=== PATIENT | female | born 1955 | race Caucasian/White ===

== ENCOUNTER 2019-12-08 11:05 | Outpatient (REF) | payer OTHER, SELFPAY ==
[2019-12-09 13:21] LABS: Lyme Abs Screen <0.90 index
[2019-12-12 12:46] LABS: EBV DNA PCR Not Detected (Not Detected); EBV Source Whole Blood
== END 2019-12-08 11:06 | disposition home or self-care (01) ==
LOC: HO.HMGCLDS 11:05
PROVIDERS: PCP Internal Medicine; Visit Provider Nurse Practitioner Family
DX: G51.0 Bell's palsy (principal)
CPT/HCPCS: 86618; 87798

== ENCOUNTER 2019-12-22 10:54 | Outpatient (REF) | payer OTHER, SELFPAY ==
[2019-12-22 14:06] LABS: MANUAL DIFF FLAG NO
[2019-12-22 14:12] LABS: Basophils Absolute Auto 0.1 X10*3/uL (0.0-0.2); Basophils Percent Auto 0.4 % (0-2); Eosinophils Absolute Auto 0.1 X10*3/uL (0.0-0.4); Eosinophils Percent Auto 1.1 % (0-4); Hematocrit 41.5 % (37-47); Hemoglobin 13.9 g/dl (12.0-16.0); Imm Gran Abs Auto 0.04 X10*3/uL (0.00-0.03); Imm Gran Pct Auto 0.3 % (0.0-0.4); Lymphocytes Absolute Auto 3.7 X10*3/uL (1.2-4.9); Mean Corpuscular HGB Conc 33.5 g/dl (31.0-35.0); Mean Corpuscular Volume 98.6 fL (80-98); Mean Platelet Volume 10.2 fL (9.4-12.3); Monocytes Absolute Auto 0.9 X10*3/uL (0.1-1.2); Monocytes Percent Auto 6.9 % (2-11); Neutrophils Percent Auto 62.3 % (45-73); Platelet Count 217 X10*3/uL (160-400); Red Blood Count 4.21 X10*6/uL (4.20-5.50); Red Cell Distribution Width 12.7 % (11.0-16.0); White Blood Count 12.8 X10*3/uL (4.8-10.8)
[2019-12-22 14:45] LABS: Anion Gap 15 (12-20); Blood Urea Nitrogen 11 mg/dL (9-16); Calcium 8.9 mg/dL (8.4-10.2); Carbon Dioxide 26 mmol/L (22-29); Chloride 102 mmol/L (96-108); Estimated Glomerular Filt Rate > 60; Glucose Random 129 mg/dL (60-115); Potassium 3.7 mmol/l (3.3-5.1); Sodium 139 mmol/L (135-145)
== END 2019-12-22 10:55 | disposition home or self-care (01) ==
LOC: HO.HMGCLDS 10:54
PROVIDERS: PCP Internal Medicine; Visit Provider Internal Medicine
DX: G47.9 Sleep disorder, unspecified (principal); I10 Essential (primary) hypertension; Z87.891 Personal history of nicotine dependence
CPT/HCPCS: 36415; 80048; 85025

== ENCOUNTER 2020-05-21 09:08 | Outpatient (REF) | payer OTHER, SELFPAY ==
[2020-05-21 11:13] LABS: MANUAL DIFF FLAG NO
[2020-05-21 11:20] LABS: Basophils Absolute Auto 0.1 X10*3/uL (0.0-0.2); Basophils Percent Auto 0.9 % (0-2); Eosinophils Absolute Auto 0.2 X10*3/uL (0.0-0.4); Eosinophils Percent Auto 1.8 % (0-4); Hematocrit 43.4 % (37-47); Hemoglobin 14.3 g/dl (12.0-16.0); Imm Gran Abs Auto 0.03 X10*3/uL (0.00-0.03); Imm Gran Pct Auto 0.4 % (0.0-0.4); Lymphocytes Absolute Auto 3.4 X10*3/uL (1.2-4.9); Lymphocytes Percent Auto 41.8 % (20-40); Mean Corpuscular HGB Conc 32.9 g/dl (31.0-35.0); Mean Corpuscular Hemoglobin 31.8 pg (27.0-33.0); Mean Corpuscular Volume 96.4 fL (80-98); Mean Platelet Volume 10.8 fL (9.4-12.3); Monocytes Absolute Auto 0.6 X10*3/uL (0.1-1.2); Monocytes Percent Auto 7.4 % (2-11); Neutrophils Absolute Auto 3.9 X10*3/uL (2.0-8.3); Neutrophils Percent Auto 47.7 % (45-73); Platelet Count 244 X10*3/uL (160-400); Red Cell Distribution Width 11.7 % (11.0-16.0); White Blood Count 8.2 X10*3/uL (4.8-10.8)
[2020-05-21 12:35] LABS: Alanine Aminotransferase 30 U/L (0-31); Albumin Level 4.2 g/dL (3.5-5.0); Alkaline Phosphatase 78 U/L (39-117); Anion Gap 13 (12-20); Aspartate Amino Transferase 26 U/L (5-31); Bilirubin Total 0.4 mg/dL (0.0-1.0); Blood Urea Nitrogen 13 mg/dL (9-16); Calcium 9.5 mg/dL (8.4-10.2); Carbon Dioxide 31 mmol/L (22-29); Chloride 102 mmol/L (96-108); Estimated Glomerular Filt Rate > 60; Glucose Random 116 mg/dL (60-115); Potassium 4.6 mmol/L (3.3-5.1); Sodium 141 mmol/L (135-145); Total Protein 7.1 g/dL (6.5-8.0)
[2020-05-22 07:27] LABS: LDL Cholesterol Direct 136 mg/dL (<100)
== END 2020-05-21 09:09 | disposition home or self-care (01) ==
LOC: HO.HMGCLDS 09:08
PROVIDERS: PCP Internal Medicine; Visit Provider Internal Medicine
DX: G47.9 Sleep disorder, unspecified (principal); I10 Essential (primary) hypertension; Q84.6 Other congenital malformations of nails; Z87.891 Personal history of nicotine dependence
CPT/HCPCS: 36415; 80053; 83721; 85025

== ENCOUNTER 2020-09-20 11:06 | Outpatient (REF) | payer OTHER, SELFPAY ==
--- NOTE | ~2020-09-20 | MM_ITS ---
EXAMINATION: MM SCREENING DIGITAL BREAST TOMOSYNTHESIS, BILATERAL CLINICAL INFORMATION: Screening. Asymptomatic. The lifetime risk of breast cancer based on the Tyrer-Cuzick Model is 12%. COMPARISON: Mammography: 09/15/2019, 08/19/2018, 08/17/2017 TECHNIQUE: Digital breast tomosynthesis is performed in both the craniocaudal and mediolateral oblique views along with computer-aided detection (CAD). Synthesized 2D images are generated from the tomosynthesis. FINDINGS: There are scattered areas of fibroglandular density (ACR BI-RADS breast composition Category b). There is no interval mass or architectural abnormality or developing density. No abnormal calcifications. The right breast again shows biopsy clip marker central 11:00 position. The left breast has probable dermal lesion overlying the upper quadrant and 2 stable nodules again seen. The axilla are unremarkable. There are no significant changes. MM/MM tomosynthesis screening BI IMPRESSION: No significant changes from prior studies. ASSESSMENT: BI-RADS 2: Benign RECOMMENDATION: Routine annual mammography screening. This patient's information was entered into a reminder system with a target due date for their next mammogram.
== END 2020-09-20 11:07 | disposition home or self-care (01) ==
LOC: HO.MAMMO 11:06
PROVIDERS: PCP Internal Medicine; Visit Provider Internal Medicine
DX: Z12.31 Encounter for screening mammogram for malignant neoplasm of breast (principal)
CPT/HCPCS: 77063; 77067

== ENCOUNTER 2020-12-02 09:02 | Outpatient (REF) | payer OTHER, SELFPAY ==
[2020-12-02 11:19] LABS: MANUAL DIFF FLAG NO
[2020-12-02 11:23] LABS: Basophils Absolute Auto 0.1 X10*3/uL (0.0-0.2); Basophils Percent Auto 0.5 % (0-2); Eosinophils Absolute Auto 0.1 X10*3/uL (0.0-0.4); Eosinophils Percent Auto 0.8 % (0-4); Hematocrit 43.1 % (37-47); Hemoglobin 14.6 g/dl (12.0-16.0); Imm Gran Abs Auto 0.03 X10*3/uL (0.00-0.03); Imm Gran Pct Auto 0.3 % (0.0-0.4); Lymphocytes Absolute Auto 3.1 X10*3/uL (1.2-4.9); Mean Corpuscular HGB Conc 33.9 g/dl (31.0-35.0); Mean Corpuscular Hemoglobin 32.4 pg (27.0-33.0); Mean Corpuscular Volume 95.6 fL (80-98); Mean Platelet Volume 10.6 fL (9.4-12.3); Monocytes Absolute Auto 0.8 X10*3/uL (0.1-1.2); Monocytes Percent Auto 7.7 % (2-11); Neutrophils Absolute Auto 6.7 X10*3/uL (2.0-8.3); Neutrophils Percent Auto 61.7 % (45-73); Platelet Count 332 X10*3/uL (160-400); Red Blood Count 4.51 X10*6/uL (4.20-5.50); Red Cell Distribution Width 11.7 % (11.0-16.0); White Blood Count 10.8 X10*3/uL (4.8-10.8)
[2020-12-02 11:56] LABS: Alanine Aminotransferase 17 U/L (0-31); Albumin Level 4.5 g/dL (3.5-5.0); Alkaline Phosphatase 97 U/L (39-117); Anion Gap 13 (12-20); Aspartate Amino Transferase 15 U/L (5-31); Bilirubin Total 0.6 mg/dL (0.0-1.0); Blood Urea Nitrogen 11 mg/dL (9-16); Calcium 9.8 mg/dL (8.4-10.2); Carbon Dioxide 29 mmol/L (22-29); Chloride 101 mmol/L (96-108); Cholesterol 210 mg/dL; Estimated Glomerular Filt Rate > 60; Glucose Fasting 123 mg/dL (60-99); HDL Cholesterol 45 mg/dL; LDL Cholesterol Calculated 149 mg/dl; Potassium 3.9 mmol/L (3.3-5.1); Sodium 139 mmol/L (135-145); Total Protein 7.7 g/dL (6.5-8.0); Triglycerides 84 mg/dL
[2020-12-03 10:12] LABS: LDL Cholesterol Direct 155 mg/dL (<100)
== END 2020-12-02 09:03 | disposition home or self-care (01) ==
LOC: HO.HMGCLDS 09:02
PROVIDERS: PCP Internal Medicine; Visit Provider Internal Medicine
DX: Z00.01 Encounter for general adult medical examination with abnormal findings (principal); E66.3 Overweight; Q84.6 Other congenital malformations of nails; I10 Essential (primary) hypertension; G47.9 Sleep disorder, unspecified; Z53.20 Procedure and treatment not carried out because of patient's decision for unspecified reasons
CPT/HCPCS: 36415; 80053; 80061; 83721; 85025

== ENCOUNTER 2021-04-18 10:59 | Outpatient (REF) | payer OTHER, SELFPAY ==
[2021-04-18 15:25] LABS: Estimated Average Glucose 134 mg/dL; Hemoglobin A1c % 6.3 %
[2021-04-18 15:37] LABS: Alanine Aminotransferase 21 U/L (0-31); Albumin Level 4.5 g/dL (3.5-5.0); Alkaline Phosphatase 94 U/L (39-117); Anion Gap 11 (12-20); Aspartate Amino Transferase 21 U/L (5-31); Bilirubin Total < 0.2 mg/dL (0.0-1.0); Blood Urea Nitrogen 14 mg/dL (9-16); Calcium 9.6 mg/dL (8.4-10.2); Carbon Dioxide 31 mmol/L (22-29); Chloride 100 mmol/L (96-108); Estimated Glomerular Filt Rate > 60; Glucose Random 122 mg/dL (60-115); Potassium 3.5 mmol/L (3.3-5.1); Sodium 138 mmol/L (135-145); Total Protein 7.7 g/dL (6.5-8.0)
== END 2021-04-18 11:00 | disposition home or self-care (01) ==
LOC: HO.HMGCLDS 10:59
PROVIDERS: Visit Provider Internal Medicine
DX: G47.9 Sleep disorder, unspecified (principal); I10 Essential (primary) hypertension; R73.01 Impaired fasting glucose
CPT/HCPCS: 36415; 80053; 83036

== ENCOUNTER 2021-09-22 11:19 | Outpatient (REF) | payer MEDICARE, SELFPAY ==
--- NOTE | ~2021-09-22 | MM_ITS ---
EXAMINATION: MM SCREENING DIGITAL BREAST TOMOSYNTHESIS, BILATERAL CLINICAL INFORMATION: Screening. Asymptomatic. The lifetime risk of breast cancer based on the Tyrer-Cuzick Model is 5%. COMPARISON: Mammography: 09/20/2020, 09/15/2019, 08/19/2018 TECHNIQUE: Digital breast tomosynthesis is performed in both the craniocaudal and mediolateral oblique views along with computer-aided detection (CAD). Synthesized 2D images are generated from the tomosynthesis. FINDINGS: There are scattered areas of fibroglandular density (ACR BI-RADS breast composition Category b). Parenchymal pattern is similar to prior studies. There are scattered bilateral stable nodular asymmetries. Biopsy clip marker again noted central upper outer right breast. The axilla and skin contours are unremarkable. No significant changes. MM/MM tomosynthesis screening BI IMPRESSION: No significant changes from prior exams. ASSESSMENT: BI-RADS 2: Benign RECOMMENDATION: Routine annual mammography screening. This patient's information was entered into a reminder system with a target due date for their next mammogram.
== END 2021-09-22 11:20 | disposition home or self-care (01) ==
LOC: HO.MAMMO 11:19
PROVIDERS: PCP Internal Medicine; Visit Provider Internal Medicine
DX: Z12.31 Encounter for screening mammogram for malignant neoplasm of breast (principal)
CPT/HCPCS: 77063; 77067

== ENCOUNTER 2021-11-27 08:51 | Outpatient (REF) | payer MEDICARE, SELFPAY ==
[2021-11-27 11:34] LABS: MANUAL DIFF FLAG NO
[2021-11-27 11:42] LABS: Basophils Absolute Auto 0.1 X10*3/uL (0.0-0.2); Basophils Percent Auto 0.9 % (0-2); Eosinophils Absolute Auto 0.1 X10*3/uL (0.0-0.4); Eosinophils Percent Auto 1.9 % (0-4); Hematocrit 44.1 % (37.0-47.0); Hemoglobin 14.7 g/dl (12.0-16.0); Imm Gran Abs Auto 0.01 X10*3/uL (0.00-0.03); Imm Gran Pct Auto 0.1 % (0.0-0.4); Lymphocytes Absolute Auto 3.2 X10*3/uL (1.2-4.9); Lymphocytes Percent Auto 46.1 % (20-40); Mean Corpuscular HGB Conc 33.3 g/dl (31.0-35.0); Mean Corpuscular Hemoglobin 31.7 pg (27.0-33.0); Mean Platelet Volume 10.4 fL (9.4-12.3); Monocytes Absolute Auto 0.5 X10*3/uL (0.1-1.2); Platelet Count 268 X10*3/uL (160-400); Red Blood Count 4.64 X10*6/uL (4.20-5.50); Red Cell Distribution Width 11.9 % (11.0-16.0); White Blood Count 6.9 X10*3/uL (4.8-10.8)
[2021-11-27 11:58] LABS: Estimated Average Glucose 128 mg/dL; Hemoglobin A1c % 6.1 %
[2021-11-27 12:08] LABS: Alanine Aminotransferase 25 U/L (0-31); Albumin Level 4.5 g/dL (3.5-5.0); Alkaline Phosphatase 90 U/L (39-117); Anion Gap 17 (12-20); Aspartate Amino Transferase 23 U/L (5-31); Bilirubin Total 0.4 mg/dL (0.0-1.0); Blood Urea Nitrogen 12 mg/dL (9-16); Calcium 9.6 mg/dL (8.4-10.2); Carbon Dioxide 29 mmol/L (22-29); Chloride 99 mmol/L (96-108); Cholesterol 237 mg/dL; Estimated Glomerular Filt Rate > 60; Glucose Fasting 111 mg/dL (60-99); HDL Cholesterol 47 mg/dL; LDL Cholesterol Calculated 157 mg/dl; Potassium 4.5 mmol/L (3.3-5.1); Sodium 140 mmol/L (135-145); Total Protein 7.5 g/dL (6.5-8.0); Triglycerides 167 mg/dL
== END 2021-11-27 08:52 | disposition home or self-care (01) ==
LOC: HO.HMGCLDS 08:51
PROVIDERS: PCP Internal Medicine; Visit Provider Internal Medicine
DX: Z00.01 Encounter for general adult medical examination with abnormal findings (principal); I10 Essential (primary) hypertension; R73.01 Impaired fasting glucose; G47.9 Sleep disorder, unspecified
CPT/HCPCS: 36415; 80053; 80061; 83036; 85025

== ENCOUNTER 2022-04-01 09:47 | Outpatient (REF) | payer MEDICARE, SELFPAY ==
[2022-04-01 12:03] LABS: Estimated Average Glucose 134 mg/dL; Hemoglobin A1c % 6.3 %
[2022-04-01 12:17] LABS: Alanine Aminotransferase 19 U/L (0-31); Albumin Level 4.3 g/dL (3.5-5.0); Alkaline Phosphatase 91 U/L (39-117); Anion Gap 11 (12-20); Aspartate Amino Transferase 20 U/L (5-31); Bilirubin Total 0.5 mg/dL (0.0-1.0); Blood Urea Nitrogen 10 mg/dL (9-16); Calcium 9.1 mg/dL (8.4-10.2); Carbon Dioxide 30 mmol/L (22-29); Chloride 103 mmol/L (96-108); Cholesterol 161 mg/dL; Estimated Glomerular Filt Rate > 60; Glucose Fasting 107 mg/dL (60-99); HDL Cholesterol 44 mg/dL; LDL Cholesterol Calculated 88 mg/dl; Potassium 3.7 mmol/L (3.3-5.1); Sodium 140 mmol/L (135-145); Total Protein 7.1 g/dL (6.5-8.0); Triglycerides 147 mg/dL
== END 2022-04-01 09:48 | disposition home or self-care (01) ==
LOC: HO.HMGCLDS 09:47
PROVIDERS: PCP Internal Medicine; Visit Provider Internal Medicine
DX: E78.9 Disorder of lipoprotein metabolism, unspecified (principal); R73.01 Impaired fasting glucose; I10 Essential (primary) hypertension
CPT/HCPCS: 36415; 80053; 80061; 83036

== ENCOUNTER 2022-09-28 11:20 | Outpatient (REF) | payer MEDICARE, SELFPAY ==
--- NOTE | ~2022-09-28 | MM_ITS ---
EXAMINATION: MM SCREENING DIGITAL BREAST TOMOSYNTHESIS, BILATERAL CLINICAL INFORMATION: Screening. Asymptomatic. The lifetime risk of breast cancer based on the Tyrer-Cuzick Model is 11.3%. COMPARISON: Mammography: This study is compared with prior exams dating back to 2019 TECHNIQUE: Digital breast tomosynthesis is performed in both the craniocaudal and mediolateral oblique views along with computer-aided detection (CAD). Synthesized 2D images are generated from the tomosynthesis. FINDINGS: There are scattered areas of fibroglandular density (ACR BI-RADS breast composition Category b). There are no significant masses, abnormal calcifications, or other abnormalities. There is tissue marker present in the superior aspect of the right breast from prior benign percutaneous biopsy. MM/MM tomosynthesis screening BI IMPRESSION: No mammographic evidence of malignancy. ASSESSMENT: BI-RADS BI-RADS 2 - Benign Findings RECOMMENDATION: Routine annual mammography screening. 1 year F/U This examination should not preclude the clinical evaluation of a suspicious palpable abnormality. This patient's information was entered into a reminder system with a target due date for their next mammogram.
== END 2022-09-28 11:21 | disposition home or self-care (01) ==
LOC: HO.MAMMO 11:20
PROVIDERS: PCP Internal Medicine; Visit Provider Internal Medicine
DX: Z12.31 Encounter for screening mammogram for malignant neoplasm of breast (principal)
CPT/HCPCS: 77063; 77067

== ENCOUNTER → 2022-09-28 11:30 | Outpatient (BNV) | payer MEDICARE, SELFPAY | PROVIDERS: PCP Internal Medicine; Visit Provider Radiology Diagnostic Radiology | DX: Z12.31 Encounter for screening mammogram for malignant neoplasm of breast (principal) | CPT/HCPCS: 77063; 77067 ==

== ENCOUNTER 2022-12-09 08:42 | Outpatient (REF) | payer MEDICARE, SELFPAY | END 2022-12-09 08:43 | disposition home or self-care (01) | LOC: HO.HMGCLDS 08:42 | PROVIDERS: PCP Internal Medicine; Visit Provider Internal Medicine | DX: Z00.01 Encounter for general adult medical examination with abnormal findings (principal); I10 Essential (primary) hypertension; G47.9 Sleep disorder, unspecified; R73.01 Impaired fasting glucose; E78.9 Disorder of lipoprotein metabolism, unspecified | CPT/HCPCS: 36415; 80053; 80061; 83036; 85025 ==

== ENCOUNTER → 2023-01-01 11:46 | Outpatient (AMB) | payer MEDICARE, SELFPAY ==
[2023-01-01 11:47] VITALS: BP 132/84; PULSE 70; O2SAT 94; BMI 27.3
--- NOTE | 2023-01-01 11:47 | A.OFFPC_ITS ---
Vital Signs 01/01/23 11:47 Height 5 ft 6 in Weight 169 lb 4 oz BMI 27.3 BP 132/84 Blood Pressure Location Lt brachial Position Sitting Pulse 70 Pulse Source Pulse Oximeter Pulse Oximetry (%) 94 Oxygen Delivery Method Room Air Intake Visit Reasons: 4m follow up Allergies No Known Allergies Allergy (Verified 01/01/23 11:48) Medication List - Last Reconciled 01/01/23 by Divine Carney MD aspirin (Adult Low Dose Aspirin) 81 mg PO DAILY atenolol 50 mg PO DAILY 90 days atorvastatin 10 mg PO DAILY 90 days trazodone 50 mg PO BEDTIME PRN 90 days Tobacco use date assessed: 01/01/23 Fall risk assessment: No Falls in past year Last assessed Fall Risk: 01/01/23 Dental Screening Dental Screen Date: 01/01/23 Did you have a dental visit in the last 12 months?: Yes Did you have a dental problem in the last 6 months where you did not have access to dental care?: No Was dental information given to patient?: Patient has dentist HPI 4m follow up HPI Details Patient is 67-year-old female came in today for her regular 4 month follow-up appointment Labs done recently reviewed with the patient Hemoglobin A1c is 6.0, with fasting sugar of 110 patient is prediabetic She is taking atorvastatin 10 mg and her LDL stable, patient is tolerating medication no side effects Blood pressure is stable patient is taking hydrochlorothiazide 25 mg and atenolol 50 mg Sleeping difficulty: Continue trazodone 50 mg , medication is helping her Allergies are stable Follow-up 4 months [facility] Medical History Difficulty sleeping Ex-smoker Hypertension, essential Surgical History Cyst of finger History of bilateral tubal ligation Family History Father Stroke HTN (hypertension) Mother HTN (hypertension) Bone cancer Maternal Grandfather No problems noted. Maternal Grandmother No problems noted. Paternal Grandfather No problems noted. Paternal Grandmother No problems noted. Brother No problems noted. Sister No problems noted. Son No problems noted. Daughter No problems noted. Social History Housing: House Alcohol intake: never Patient Tobacco Use Status: Former Tobacco user Quit Date: quit 7 years ago e-Cigarette/Vaping Use: Never Used Second Hand Smoke Exposure: No service: No Current occupational status: retired Cognitive needs: No Hearing needs: No Vision needs: Yes (contacts) Questionnaire PHQ-9 Over the last 2 weeks, how often have you been bothered by any of the following problems? 1. Little interest or pleasure in doing things: not at all 2. Feeling down, depressed, or hopeless: not at all 3. Trouble falling or staying asleep, or sleeping too much: several days 4. Feeling tired or having little energy: not at all 5. Poor appetite or overeating: not at all 6. Feeling bad about yourself - or that you are a failure or have let yourself or your family down: not at all 7. Trouble concentrating on things, such as reading the newspaper or watching television: not at all 8. Moving or speaking so slowly that other people could have noticed. Or the opposite - being so fidgety or restless that you have been moving around a lot more than usual: not at all 9. Thoughts that you would be better off or of hurting yourself in some way: not at all Total score: 1 Depression Screening Interpretation: Negative Depression Screening Done: Yes 97206 - PHQ-9 Billing: Yes Source: Developed by Drs. Howie Driver, Steffi Stevenson, Tommie Ruby and colleagues, with an educational dayday from [employer]. Thrive Questionnaire Date Thrive assessed: 08/19/21 AUDIT C Alcohol Use Questionnaire (AUDIT-C) 1. How often do you have a drink containing alcohol?: Never 3. How often do you have six or more drinks on one occasion?: Never Total Score: 0 Score Reviewed/Action Taken: Yes GOPI-7 AMB Questionnaire GOPI-7 Date GOPI - 7 assessed: 01/01/23 Feeling nervous, anxious, or on edge: 0 = Not at all Not being able to stop or control worryin = Not at all Worrying too much about different things: 0 = Not at all Trouble relaxin = Not at all Being so restless that it is hard to sit still: 0 = Not at all Becoming easily annoyed or irritable: 0 = Not at all Feeling afraid as if something awful might happen: 0 = Not at all Total GOPI-7 score (0-4 normal; 5-9 mild; 10-14 moderate; 15-21 severe): 0 Source: Developed by Drs. Howie Driver, Steffi Stevenson, Tommie Ruby and colleagues, with an educational dayday from [employer]. GOPI-7 Assessment Billing GOPI-7 Assessment Tool: GOPI-7 Assessment 18230 Review of Systems Const Denies chills and Denies fever(s) ENT Denies epistaxis and Denies nasal discharge Card Denies chest pain Resp Denies chest congestion, Denies cough and Denies hemoptysis GI Denies diarrhea and Denies nausea Skin/Breast Denies rash Neuro Reports no additional complaints Psych Reports no additional complaints Endo Reports no additional complaints Physical exam (Primary Care) Vital Signs: Last Vital Signs Pulse 70 01/01/23 11:47 BP 132/84 01/01/23 11:47 Pulse Ox 94 01/01/23 11:47 Oxygen Delivery Method Room Air 01/01/23 11:47 BMI result Body Mass Index 27.3 Tobacco/Smoking Status: Tobacco use Status Tobacco use date assessed 01/01/23 01/01/23 11:48 Patient Tobacco Use Status Former Tobacco user 01/01/23 11:48 e-Cigarette/Vaping Use Never Used 01/01/23 11:48 PHQ-9: PHQ-9 Score PHQ-9: Total score 1 01/01/23 11:55 Depression Screening Interpretation: Negative Thrive Assessment: Date of Thrive Assessment Date Thrive assessed 08/19/21 01/01/23 11:48 Const General: cooperative, comfortable and no acute distress Orientation/consciousness: patient oriented x3 HENMT Head: Yes normocephalic Eyes General: appearance normal, both eyes and all related structures Neck Neck: Yes supple Resp Effort & Inspection: normal respiratory effort, no cough and no stridor Cardio Rhythm: regular rhythm Heart sounds: S1 normal heart sound present and S2 normal heart sound present Skin General skin exam: turgor normal Neuro General: patient oriented x3, tone normal and moves all extremities Extrem Right lower extremity: no edema Left lower extremity: no edema Assessment and Plan Assessment & Plan (1) Hypertension, essential: Code(s): I10 - Essential (primary) hypertension (2) Difficulty sleeping: Code(s): G47.9 - Sleep disorder, unspecified (3) Impaired fasting blood sugar: Code(s): R73.01 - Impaired fasting glucose (4) Lipid disorder: Code(s): E78.9 - Disorder of lipoprotein metabolism, unspecified (5) Environmental allergies: Code(s): Z91.09 - Other allergy status, other than to drugs and biological substances Plan Patient is 67-year-old female came in today for her regular 4 month follow-up appointment Labs done recently reviewed with the patient Hemoglobin A1c is 6.0, with fasting sugar of 110 patient is prediabetic She is taking atorvastatin 10 mg and her LDL stable, patient is tolerating medication no side effects Blood pressure is stable patient is taking hydrochlorothiazide 25 mg and atenolol 50 mg Sleeping difficulty: Continue trazodone 50 mg , medication is helping her Allergies are stable Follow-up 4 months Orders: Orders Hemoglobin A1c Today E78.9 - Disorder of lipoprotein metabolism, unspecified, G47.9 - Sleep disorder, unspecified, I10 - Essential (primary) hypertension, R73.01 - Impaired fasting glucose, Z91.09 - Other allergy status, other than to drugs and biological substances Complete Blood Count Auto Diff Today E78.9 - Disorder of lipoprotein metabolism, unspecified, G47.9 - Sleep disorder, unspecified, I10 - Essential (primary) hypertension, R73.01 - Impaired fasting glucose, Z91.09 - Other allergy status, other than to drugs and biological substances Comprehensive Met. Panel Today E78.9 - Disorder of lipoprotein metabolism, unspecified, G47.9 - Sleep disorder, unspecified, I10 - Essential (primary) hypertension, R73.01 - Impaired fasting glucose, Z91.09 - Other allergy status, other than to drugs and biological substances Coding Level of Care Code Est Pt Level 4 (12832) Diagnoses Hypertension, essential I10 Difficulty sleeping G47.9 Impaired fasting blood sugar R73.01 Lipid disorder E78.9 Environmental allergies Z91.09 Additional Codes GOPI-7 Assessment Billing - GOPI-7 Assessment Tool: GOPI-7 Assessment 63601 ([id number])
== END ==
PROVIDERS: PCP Internal Medicine; Visit Provider Internal Medicine
DX: I10 Essential (primary) hypertension (principal); G47.9 Sleep disorder, unspecified; R73.01 Impaired fasting glucose; E78.9 Disorder of lipoprotein metabolism, unspecified; Z91.09 Other allergy status, other than to drugs and biological substances
CPT/HCPCS: 99214

== ENCOUNTER 2023-04-30 12:01 | Outpatient (AMB) | payer MEDICARE, SELFPAY ==
[2023-04-30 12:06] VITALS: BP 156/84; PULSE 70; O2SAT 91; BMI 27.8
--- NOTE | 2023-04-30 12:06 | A.OFFPC_ITS ---
Vital Signs 04/30/23 12:06 Height 5 ft 6 in Weight 172 lb BMI 27.8 BP 156/84 H Blood Pressure Location Rt brachial Position Sitting Pulse 70 Pulse Source Pulse Oximeter Pulse Oximetry (%) 91 L Oxygen Delivery Method Room Air Intake Visit Reasons: 4 Month follow up Allergies No Known Allergies Allergy (Verified 04/30/23 12:08) Medication List - Last Reconciled 04/30/23 by Divine Carney MD aspirin (Adult Low Dose Aspirin) 81 mg PO DAILY atenolol 50 mg PO DAILY 90 days atorvastatin 10 mg PO DAILY 90 days trazodone 50 mg PO BEDTIME PRN 90 days Tobacco use date assessed: 04/30/23 Fall risk assessment: No Falls in past year Last assessed Fall Risk: 04/30/23 Dental Screening Dental Screen Date: 04/30/23 Did you have a dental visit in the last 12 months?: Yes Did you have a dental problem in the last 6 months where you did not have access to dental care?: No Was dental information given to patient?: Patient has dentist HPI 4 Month follow up HPI Details Patient is 67-year-old female came in today for her regular 4 month follow-up appointment Labs were ordered but patient forgot She will do them today Blood pressure is slightly elevated today patient says that she was rushing when she came in It is running reasonable at home around 130s 120s systolic She is taking atorvastatin 10 mg and her LDL stable, patient is tolerating medication no side effects Sleeping difficulty: Continue trazodone 50 mg , medication is helping her Allergies are stable Patient tells me that she went ice skating yesterday and she did well She used to scared when she was young Follow-up 4 months [facility] Medical History Difficulty sleeping Ex-smoker Hypertension, essential Surgical History Cyst of finger History of bilateral tubal ligation Family History Father Stroke HTN (hypertension) Mother HTN (hypertension) Bone cancer Maternal Grandfather No problems noted. Maternal Grandmother No problems noted. Paternal Grandfather No problems noted. Paternal Grandmother No problems noted. Brother No problems noted. Sister No problems noted. Son No problems noted. Daughter No problems noted. Social History Housing: House Alcohol intake: never Patient Tobacco Use Status: Former Tobacco user Quit Date: quit 7 years ago e-Cigarette/Vaping Use: Never Used Second Hand Smoke Exposure: No service: No Current occupational status: retired Cognitive needs: No Hearing needs: No Vision needs: Yes (contacts) Questionnaire Thrive Questionnaire Date Thrive assessed: 08/19/21 AUDIT C Alcohol Use Questionnaire (AUDIT-C) 1. How often do you have a drink containing alcohol?: Never 3. How often do you have six or more drinks on one occasion?: Never Total Score: 0 Score Reviewed/Action Taken: Yes GOPI-7 AMB Questionnaire GOPI-7 Date GOPI - 7 assessed: 01/01/23 Source: Developed by Drs. Howie Driver, Steffi Stevenson, Tommie Ruby and colleagues, with an educational dayday from [employer]. Review of Systems Const Denies chills and Denies fever(s) ENT Denies epistaxis and Denies nasal discharge Card Denies chest pain Resp Denies chest congestion, Denies cough and Denies hemoptysis GI Denies diarrhea and Denies nausea Skin/Breast Denies rash Neuro Reports no additional complaints Psych Reports no additional complaints Endo Reports no additional complaints Physical exam (Primary Care) Vital Signs: Last Vital Signs Pulse 70 04/30/23 12:06 BP 156/84 H 04/30/23 12:06 Pulse Ox 91 L 04/30/23 12:06 Oxygen Delivery Method Room Air 04/30/23 12:06 BMI result Body Mass Index 27.8 Tobacco/Smoking Status: Tobacco use Status Tobacco use date assessed 04/30/23 04/30/23 12:08 Patient Tobacco Use Status Former Tobacco user 04/30/23 12:08 e-Cigarette/Vaping Use Never Used 04/30/23 12:08 Thrive Assessment: Date of Thrive Assessment Date Thrive assessed 08/19/21 04/30/23 12:08 Const General: cooperative, comfortable and no acute distress Orientation/consciousness: patient oriented x3 HENMT Head: Yes normocephalic Eyes General: appearance normal, both eyes and all related structures Neck Neck: Yes supple Resp Effort & Inspection: normal respiratory effort, no cough and no stridor Cardio Rhythm: regular rhythm Heart sounds: S1 normal heart sound present and S2 normal heart sound present Skin General skin exam: turgor normal Neuro General: patient oriented x3, tone normal and moves all extremities Extrem Right lower extremity: no edema Left lower extremity: no edema Assessment and Plan Assessment & Plan (1) Hypertension, essential: Code(s): I10 - Essential (primary) hypertension (2) Difficulty sleeping: Code(s): G47.9 - Sleep disorder, unspecified (3) Impaired fasting blood sugar: Code(s): R73.01 - Impaired fasting glucose (4) Environmental allergies: Code(s): Z91.09 - Other allergy status, other than to drugs and biological substances (5) Lipid disorder: Code(s): E78.9 - Disorder of lipoprotein metabolism, unspecified Plan Patient is 67-year-old female came in today for her regular 4 month follow-up appointment Labs were ordered but patient forgot She will do them today Blood pressure is slightly elevated today patient says that she was rushing when she came in It is running reasonable at home around 130s 120s systolic She is taking atorvastatin 10 mg and her LDL stable, patient is tolerating medication no side effects Sleeping difficulty: Continue trazodone 50 mg , medication is helping her Allergies are stable Patient tells me that she went ice skating yesterday and she did well She used to scared when she was young Follow-up 4 months Orders: Orders Complete Blood Count Auto Diff Today E78.9 - Disorder of lipoprotein metabolism, unspecified, G47.9 - Sleep disorder, unspecified, I10 - Essential (primary) hypertension, R73.01 - Impaired fasting glucose, Z91.09 - Other allergy status, other than to drugs and biological substances Microalbumin, Random (w Creat) Today E78.9 - Disorder of lipoprotein metabolism, unspecified, G47.9 - Sleep disorder, unspecified, I10 - Essential (primary) hypertension, R73.01 - Impaired fasting glucose, Z91.09 - Other allergy status, other than to drugs and biological substances Comprehensive [place]. Panel Fast Today E78.9 - Disorder of lipoprotein metabolism, unspecified, G47.9 - Sleep disorder, unspecified, I10 - Essential (primary) hypertension, R73.01 - Impaired fasting glucose, Z91.09 - Other allergy status, other than to drugs and biological substances Lipid Panel Today E78.9 - Disorder of lipoprotein metabolism, unspecified, G47.9 - Sleep disorder, unspecified, I10 - Essential (primary) hypertension, R73.01 - Impaired fasting glucose, Z91.09 - Other allergy status, other than to drugs and biological substances Hemoglobin A1c Today E78.9 - Disorder of lipoprotein metabolism, unspecified, G47.9 - Sleep disorder, unspecified, I10 - Essential (primary) hypertension, R73.01 - Impaired fasting glucose, Z91.09 - Other allergy status, other than to drugs and biological substances Coding Level of Care Code Est Pt Level 4 (14032) Diagnoses Hypertension, essential I10 Difficulty sleeping G47.9 Impaired fasting blood sugar R73.01 Environmental allergies Z91.09 Lipid disorder E78.9
== END 2023-04-30 12:45 | disposition home or self-care (01) ==
PROVIDERS: PCP Internal Medicine; Visit Provider Internal Medicine
DX: I10 Essential (primary) hypertension (principal); G47.9 Sleep disorder, unspecified; R73.01 Impaired fasting glucose; Z91.09 Other allergy status, other than to drugs and biological substances; E78.9 Disorder of lipoprotein metabolism, unspecified
CPT/HCPCS: 99214

== ENCOUNTER 2023-05-04 09:45 | Outpatient (REF) | payer MEDICARE, SELFPAY ==
[2023-05-04 11:40] LABS: MANUAL DIFF FLAG NO
[2023-05-04 11:52] LABS: Basophils Absolute Auto 0.1 X10*3/uL (0.0-0.2); Basophils Percent Auto 0.7 % (0-2); Eosinophils Absolute Auto 0.1 X10*3/uL (0.0-0.4); Eosinophils Percent Auto 1.7 % (0-4); Hematocrit 42.6 % (37.0-47.0); Hemoglobin 14.4 g/dl (12.0-16.0); Imm Gran Abs Auto 0.02 X10*3/uL (0.00-0.03); Imm Gran Pct Auto 0.3 % (0.0-0.4); Lymphocytes Absolute Auto 3.1 X10*3/uL (1.2-4.9); Mean Corpuscular HGB Conc 33.8 g/dl (31.0-35.0); Mean Corpuscular Hemoglobin 32.3 pg (27.0-33.0); Mean Corpuscular Volume 95.5 fL (80.0-98.0); Mean Platelet Volume 10.5 fL (9.4-12.3); Monocytes Absolute Auto 0.6 X10*3/uL (0.1-1.2); Monocytes Percent Auto 7.3 % (2-11); Neutrophils Absolute Auto 3.7 x10*3/uL (2.0-8.3); Platelet Count 254 X10*3/uL (160-400); Red Blood Count 4.46 X10*6/uL (4.20-5.50); Red Cell Distribution Width 11.9 % (11.0-16.0); White Blood Count 7.5 X10*3/uL (4.8-10.8)
[2023-05-04 12:03] LABS: Estimated Average Glucose 126 mg/dL; Hemoglobin A1C 150.4423 umol/L
[2023-05-04 12:06] LABS: Alanine Aminotransferase 23 U/L (0-31); Albumin Level 4.3 g/dL (3.5-5.0); Alkaline Phosphatase 98 U/L (39-117); Anion Gap 10 (12-20); Aspartate Amino Transferase 22 U/L (5-31); Blood Urea Nitrogen 11 mg/dL (9-16); Calcium 9.3 mg/dL (8.4-10.2); Carbon Dioxide 28 mmol/L (22-29); Chloride 104 mmol/L (96-108); Cholesterol 153 mg/dL (<200); Estimated Glomerular Filt Rate > 60; Glucose Fasting 101 mg/dL (60-99); Glucose Random 99 mg/dL (60-115); HDL Cholesterol 43 mg/dL (>40); LDL Cholesterol Calculated 85 mg/dL (<100); Potassium 3.6 mmol/L (3.3-5.1); Sodium 138 mmol/L (135-145); Total Protein 7.7 g/dL (6.5-8.0); Triglycerides 129 mg/dL (<150)
[2023-05-04 12:13] LABS: Bilirubin Total 0.5 mg/dL (0.0-1.0)
[2023-05-04 14:13] LABS: Creatinine Urine 16.25 mg/dL; Microalbumin Urine < 5.0 mg/L
== END 2023-05-04 09:46 | disposition home or self-care (01) ==
LOC: HO.HMGCLDS 09:45
PROVIDERS: PCP Internal Medicine; Visit Provider Internal Medicine
DX: I10 Essential (primary) hypertension (principal); G47.9 Sleep disorder, unspecified; R73.01 Impaired fasting glucose; E78.9 Disorder of lipoprotein metabolism, unspecified; Z91.09 Other allergy status, other than to drugs and biological substances
CPT/HCPCS: 36415; 80053; 80061; 82043; 82570; 83036; 85025

== ENCOUNTER 2023-09-08 12:07 | Outpatient (AMB) | payer MEDICARE, SELFPAY ==
[2023-09-08 12:11] VITALS: BP 182/94; PULSE 70; O2SAT 94; BMI 26.8
--- NOTE | 2023-09-08 12:11 | MHC.PC.OV ---
Vital Signs 09/08/23 12:11 09/08/23 12:19 Height 5 ft 6 in Weight 166 lb 2 oz BMI 26.8 BP 182/94 H 160/94 H Blood Pressure Location Rt brachial Rt brachial Position Sitting Sitting Pulse 70 Pulse Source Pulse Oximeter Pulse Oximetry (%) 94 Oxygen Delivery Method Room Air Intake Visit Reasons: PE Allergies No Known Allergies Allergy (Verified 09/08/23 12:13) Medication List - Last Reconciled 09/08/23 by Divine Carney MD aspirin (Adult Low Dose Aspirin) 81 mg PO DAILY atenolol 50 mg PO DAILY 90 days atorvastatin 10 mg PO DAILY 90 days trazodone 50 mg PO BEDTIME PRN 90 days Tobacco use date assessed: 09/08/23 Fall risk assessment: No Falls in past year Last assessed Fall Risk: 09/08/23 Dental Screening Dental Screen Date: 09/08/23 Did you have a dental visit in the last 12 months?: Yes Did you have a dental problem in the last 6 months where you did not have access to dental care?: No Was dental information given to patient?: Patient has dentist HPI PE HPI Details Patient is 68-year-old female came in today for physical examination Colonoscopy declined No more Pap smear, last Pap smear was November of 2018 Mammogram up-to-date Medication list reviewed Atenolol 50 mg for blood pressure, blood pressure is elevated today we checked it again and it is 160 by 94 Patient says that she had 2 cups of coffee before she came in, but at home it is running around 120 systolic She will bring in her blood pressure monitor and have it rechecked by nurse navigator next week Patient was instructed not to drink coffee before she comes in Other medications are Atorvastatin 10 mg Trazodone 50 or 75 mg at night to sleep Tdap was 2020 Follow-up 4 months Labs are needed before next visit fasting She has impaired fasting sugar as well we will check hemoglobin A1c [facility] Medical History Difficulty sleeping Ex-smoker Hypertension, essential Surgical History Cyst of finger History of bilateral tubal ligation Family History Father Stroke HTN (hypertension) Mother HTN (hypertension) Bone cancer Maternal Grandfather No problems noted. Maternal Grandmother No problems noted. Paternal Grandfather No problems noted. Paternal Grandmother No problems noted. Brother No problems noted. Sister No problems noted. Son No problems noted. Daughter No problems noted. Social History Housing: House Alcohol intake: never Patient Tobacco Use Status: Former Tobacco user e-Cigarette/Vaping Use: Never Used Second Hand Smoke Exposure: No service: No Current occupational status: retired Cognitive needs: No Hearing needs: No Vision needs: Yes (contacts) Questionnaire PHQ-9 Over the last 2 weeks, how often have you been bothered by any of the following problems? 1. Little interest or pleasure in doing things: not at all 2. Feeling down, depressed, or hopeless: not at all 3. Trouble falling or staying asleep, or sleeping too much: several days 4. Feeling tired or having little energy: not at all 5. Poor appetite or overeating: not at all 6. Feeling bad about yourself - or that you are a failure or have let yourself or your family down: not at all 7. Trouble concentrating on things, such as reading the newspaper or watching television: not at all 8. Moving or speaking so slowly that other people could have noticed. Or the opposite - being so fidgety or restless that you have been moving around a lot more than usual: not at all 9. Thoughts that you would be better off or of hurting yourself in some way: not at all Total score: 1 Depression Screening Interpretation: Negative Depression Screening Done: Yes 36768 - PHQ-9 Billing: Yes Source: Developed by Drs. Howie Driver, Steffi Stevenson, Tommie Ruby and colleagues, with an educational dayday from [employer]. Thrive Questionnaire Date Thrive assessed: 08/19/21 AUDIT C Alcohol Use Questionnaire (AUDIT-C) 1. How often do you have a drink containing alcohol?: Never 2. How many drinks containing alcohol do you have on a typical day when you are drinking?: 1 or 2 3. How often do you have six or more drinks on one occasion?: Never Total Score: 0 Score Reviewed/Action Taken: Yes GOPI-7 AMB Questionnaire GOPI-7 Date GOPI - 7 assessed: 01/01/23 Feeling nervous, anxious, or on edge: 0 = Not at all Not being able to stop or control worryin = Not at all Worrying too much about different things: 0 = Not at all Trouble relaxin = Not at all Being so restless that it is hard to sit still: 0 = Not at all Becoming easily annoyed or irritable: 0 = Not at all Feeling afraid as if something awful might happen: 0 = Not at all Total GOPI-7 score (0-4 normal; 5-9 mild; 10-14 moderate; 15-21 severe): 0 Source: Developed by Drs. Howie Driver, Steffi Stevenson, Tommie Ruby and colleagues, with an educational dayday from [employer]. Review of Systems Const Denies chills, Denies fever(s) and Denies headache(s) Eyes Denies blurry vision ENT Denies headache(s), Denies nasal discharge, Denies nasal obstruction, Denies odynophagia and Denies sinus pain Card Denies chest pain at rest and Denies chest pain with activity Resp Denies cough and Denies hemoptysis GI Denies diarrhea, Denies odynophagia, Denies vomiting and Denies hematemesis Reports as per HPI Musc Denies abnormal gait Skin/Breast Reports as per HPI Neuro Denies Neuro-related abnormal movements, Denies Abnormal speech present, Denies abnormal gait, Denies headache(s) and Denies Sensory deficit (Neuro) Psych Denies mood swings and Denies paranoia Endo Reports as per HPI Denzel/Lymph Reports as per HPI Aller/Immun Reports as per HPI Physical exam (Primary Care) Vital Signs: Last Vital Signs Pulse 70 09/08/23 12:11 BP 160/94 H 09/08/23 12:19 Pulse Ox 94 09/08/23 12:11 Oxygen Delivery Method Room Air 09/08/23 12:11 BMI result Body Mass Index 26.8 Tobacco/Smoking Status: Tobacco use Status Tobacco use date assessed 09/08/23 09/08/23 12:14 Patient Tobacco Use Status Former Tobacco user 09/08/23 12:14 e-Cigarette/Vaping Use Never Used 09/08/23 12:14 Depression Screening Interpretation: Negative Thrive Assessment: Date of Thrive Assessment Date Thrive assessed 08/19/21 09/08/23 12:14 Const General: cooperative, comfortable and no acute distress Orientation/consciousness: patient oriented x3 HENMT Head: Yes normocephalic and Yes atraumatic Eyes General: appearance normal, both eyes and all related structures Pupils: Equal, round and reactive pupils present EOM: EOMs intact bilaterally Neck Neck: Yes supple and No lymphadenopathy Thyroid: Thyroid normal Lymphatic: no lymphadenopathy noted Chest Breast/axilla palpation: normal palpation of the breasts Resp Effort & Inspection: normal respiratory effort and able to speak in complete sentences Auscultation: clear to auscultation bilaterally Cardio Heart sounds: S1 normal heart sound present and S2 normal heart sound present GI Palpation (GI): Soft to palpation and nontender Auscultation: normal bowel sounds General: Yes no CVA tenderness Back/Spine/Pelvis Back: no CVA tenderness Skin General skin exam: elasticity normal and turgor normal Neuro General: patient oriented x3 and gait normal Cranial nerves: Yes Equal, round and reactive pupils present Speech: No Abnormal speech present Sensory Exam: No Sensory deficit (Neuro) Coordination: tandem gait normal and Romberg test negative Extrem General: Yes normal exam except as noted and No edema Assessment and Plan Assessment & Plan (1) Encounter for general adult medical examination with abnormal findings: Code(s): Z00.01 - Encounter for general adult medical examination with abnormal findings (2) Hypertension, essential: Code(s): I10 - Essential (primary) hypertension (3) Impaired fasting blood sugar: Code(s): R73.01 - Impaired fasting glucose (4) Environmental allergies: Code(s): Z91.09 - Other allergy status, other than to drugs and biological substances (5) Lipid disorder: Code(s): E78.9 - Disorder of lipoprotein metabolism, unspecified Plan atient is 68-year-old female came in today for physical examination Colonoscopy declined No more Pap smear, last Pap smear was November of 2018 Mammogram up-to-date Medication list reviewed Atenolol 50 mg for blood pressure, blood pressure is elevated today we checked it again and it is 160 by 94 Patient says that she had 2 cups of coffee before she came in, but at home it is running around 120 systolic She will bring in her blood pressure monitor and have it rechecked by nurse navigator next week Patient was instructed not to drink coffee before she comes in Other medications are Atorvastatin 10 mg Trazodone 50 or 75 mg at night to sleep Tdap was 2020 Follow-up 4 months Labs are needed before next visit fasting She has impaired fasting sugar as well we will check hemoglobin A1c Orders: Orders Complete Blood Count Auto Diff Today E78.9 - Disorder of lipoprotein metabolism, unspecified, I10 - Essential (primary) hypertension, R73.01 - Impaired fasting glucose, Z00.01 - Encounter for general adult medical examination with abnormal findings, Z91.09 - Other allergy status, other than to drugs and biological substances Comprehensive [place] Panel Fast Today E78.9 - Disorder of lipoprotein metabolism, unspecified, I10 - Essential (primary) hypertension, R73.01 - Impaired fasting glucose, Z00.01 - Encounter for general adult medical examination with abnormal findings, Z91.09 - Other allergy status, other than to drugs and biological substances Lipid Panel Today E78.9 - Disorder of lipoprotein metabolism, unspecified, I10 - Essential (primary) hypertension, R73.01 - Impaired fasting glucose, Z00.01 - Encounter for general adult medical examination with abnormal findings, Z91.09 - Other allergy status, other than to drugs and biological substances Hemoglobin A1c Today R73.01 - Impaired fasting glucose TSH reflex Free T4 Today E78.9 - Disorder of lipoprotein metabolism, unspecified, I10 - Essential (primary) hypertension, R73.01 - Impaired fasting glucose, Z00.01 - Encounter for general adult medical examination with abnormal findings, Z91.09 - Other allergy status, other than to drugs and biological substances Vitamin D 25-OH (D2 and D3) Today E78.9 - Disorder of lipoprotein metabolism, unspecified, I10 - Essential (primary) hypertension, R73.01 - Impaired fasting glucose, Z00.01 - Encounter for general adult medical examination with abnormal findings, Z91.09 - Other allergy status, other than to drugs and biological substances Coding Level of Care Code Est Pt Level 3 (22855) Est Pt Prev Care >65y(53378) Diagnoses Encounter for general adult medical examination with abnormal findings Z00.01 Hypertension, essential I10 Impaired fasting blood sugar R73.01 Environmental allergies Z91.09 Lipid disorder E78.9
[2023-09-08 12:19] VITALS: BP 160/94
== END 2023-09-08 12:43 | disposition home or self-care (01) ==
PROVIDERS: PCP Internal Medicine; Visit Provider Internal Medicine
DX: Z00.01 Encounter for general adult medical examination with abnormal findings (principal); I10 Essential (primary) hypertension; R73.01 Impaired fasting glucose; Z91.09 Other allergy status, other than to drugs and biological substances; E78.9 Disorder of lipoprotein metabolism, unspecified
CPT/HCPCS: 99213; 99397

== ENCOUNTER 2023-10-04 11:20 | Outpatient (REF) | payer MEDICARE, SELFPAY ==
--- NOTE | ~2023-10-04 | MM_ITS ---
EXAMINATION: MM SCREENING DIGITAL BREAST TOMOSYNTHESIS, BILATERAL CLINICAL INFORMATION: Screening. Asymptomatic. COMPARISON: Mammography: This study is compared with prior exams dating back to 2019. TECHNIQUE: Digital breast tomosynthesis is performed in both the craniocaudal and mediolateral oblique views along with computer-aided detection (CAD). Synthesized 2D images are generated from the tomosynthesis. FINDINGS: There are scattered areas of fibroglandular density (ACR BI-RADS breast composition Category b). There are no significant masses, abnormal calcifications, or other abnormalities. There is a biopsy tissue marker in the right breast. MM/MM tomosynthesis screening BI IMPRESSION: No mammographic evidence of malignancy. ASSESSMENT: BI-RADS BI-RADS 2 - Benign Findings RECOMMENDATION: Routine annual mammography screening. 1 year F/U This examination should not preclude the clinical evaluation of a suspicious palpable abnormality. This patient's information was entered into a reminder system with a target due date for their next mammogram.
== END 2023-10-04 11:21 | disposition home or self-care (01) ==
LOC: HO.MAMMO 11:20
PROVIDERS: PCP Internal Medicine; Visit Provider Internal Medicine
DX: Z12.31 Encounter for screening mammogram for malignant neoplasm of breast (principal)
CPT/HCPCS: 77063; 77067

== ENCOUNTER → 2023-10-04 11:30 | Outpatient (BNV) | payer MEDICARE, SELFPAY | PROVIDERS: PCP Internal Medicine; Visit Provider Radiology Diagnostic Radiology | DX: Z12.31 Encounter for screening mammogram for malignant neoplasm of breast (principal) | CPT/HCPCS: 77063; 77067 ==

== ENCOUNTER → 2023-11-25 10:04 | Outpatient (BNVA) | payer MEDICARE, SELFPAY | PROVIDERS: PCP Internal Medicine ==

== ENCOUNTER 2023-12-03 08:38 | Outpatient (REF) | payer MEDICARE, SELFPAY ==
[2023-12-03 10:01] LABS: MANUAL DIFF FLAG NO
[2023-12-03 10:07] LABS: Basophils Absolute Auto 0.1 X10*3/uL (0.0-0.2); Basophils Percent Auto 0.9 % (0-2); Eosinophils Absolute Auto 0.1 X10*3/uL (0.0-0.4); Hemoglobin 14.6 g/dl (12.0-16.0); Imm Gran Abs Auto 0.02 X10*3/uL (0.00-0.03); Imm Gran Pct Auto 0.3 % (0.0-0.4); Lymphocytes Absolute Auto 2.9 X10*3/uL (1.2-4.9); Lymphocytes Percent Auto 41.4 % (20-40); Mean Corpuscular HGB Conc 33.2 g/dl (31.0-35.0); Mean Corpuscular Hemoglobin 31.9 pg (27.0-33.0); Mean Corpuscular Volume 96.3 fL (80.0-98.0); Mean Platelet Volume 10.5 fL (9.4-12.3); Monocytes Absolute Auto 0.5 X10*3/uL (0.1-1.2); Monocytes Percent Auto 7.3 % (2-11); Neutrophils Absolute Auto 3.3 x10*3/uL (2.0-8.3); Neutrophils Percent Auto 48.1 % (45-73); Platelet Count 259 X10*3/uL (160-400); Red Blood Count 4.57 X10*6/uL (4.20-5.50); Red Cell Distribution Width 11.9 % (11.0-16.0); White Blood Count 6.9 X10*3/uL (4.8-10.8)
[2023-12-03 10:48] LABS: Estimated Average Glucose 131 mg/dL; Hemoglobin A1C 162.0295 umol/L; Hemoglobin A1c % 6.2 % (<6.0); Total Hemoglobin (HGBA1C) 3648.1079 umol/L
[2023-12-03 14:33] LABS: Alanine Aminotransferase 27 U/L (0-31); Albumin Level 4.3 g/dL (3.5-5.0); Alkaline Phosphatase 100 U/L (39-117); Anion Gap 11 (12-20); Aspartate Amino Transferase 22 U/L (5-31); Bilirubin Total 0.4 mg/dL (0.0-1.0); Blood Urea Nitrogen 10 mg/dL (9-16); Calcium 9.2 mg/dL (8.4-10.2); Carbon Dioxide 28 mmol/L (22-29); Chloride 104 mmol/L (96-108); Cholesterol 146 mg/dL (<200); Estimated Glomerular Filt Rate > 60; Glucose Fasting 109 mg/dL (60-99); HDL Cholesterol 43 mg/dL (>40); LDL Cholesterol Calculated 72 mg/dL (<100); Potassium 4.7 mmol/L (3.3-5.1); Sodium 138 mmol/L (135-145); Total Protein 7.4 g/dL (6.5-8.0); Triglycerides 157 mg/dL (<150)
[2023-12-03 14:48] LABS: TSH reflex Free T4 2.73 uIU/mL (0.32-4.0)
[2023-12-09 15:43] LABS: Vitamin D 25-OH, D2 <4 ng/mL; Vitamin D 25-OH, D3 28 ng/mL; Vitamin D 25-OH, Total 28 ng/mL (30-100)
== END 2023-12-03 08:39 | disposition home or self-care (01) ==
LOC: HO.HMGCLDS 08:38
PROVIDERS: PCP Internal Medicine; Visit Provider Internal Medicine
DX: Z00.01 Encounter for general adult medical examination with abnormal findings (principal); I10 Essential (primary) hypertension; R73.01 Impaired fasting glucose; Z91.09 Other allergy status, other than to drugs and biological substances; E78.9 Disorder of lipoprotein metabolism, unspecified
CPT/HCPCS: 36415; 80053; 80061; 82306; 83036; 84443; 85025

== ENCOUNTER 2024-01-04 11:51 | Outpatient (AMB) | payer MEDICARE, SELFPAY ==
[2024-01-04 11:53] VITALS: BP 162/94; PULSE 75; O2SAT 98; BMI 27.3
--- NOTE | 2024-01-04 11:53 | MHC.PC.OV ---
Vital Signs 01/04/24 11:53 Height 5 ft 6 in Weight 169 lb 2 oz BMI 27.3 BP 162/94 H Blood Pressure Location Rt brachial Position Sitting Pulse 75 Pulse Source Pulse Oximeter Pulse Oximetry (%) 98 Oxygen Delivery Method Room Air Intake Visit Reasons: 4M F/U Allergies No Known Allergies Allergy (Verified 01/04/24 11:54) Medication List - Last Reconciled 01/04/24 by Divine Carney MD aspirin (Adult Low Dose Aspirin) 81 mg PO DAILY atenolol 50 mg PO DAILY 90 days atorvastatin 10 mg PO DAILY 90 days lisinopril 10 mg PO DAILY trazodone 50 mg PO BEDTIME PRN 90 days Tobacco use date assessed: 01/04/24 Fall risk assessment: No Falls in past year Last assessed Fall Risk: 01/04/24 Dental Screening Dental Screen Date: 01/04/24 Did you have a dental visit in the last 12 months?: Yes Did you have a dental problem in the last 6 months where you did not have access to dental care?: No Was dental information given to patient?: Patient has dentist HPI 4M F/U HPI Details Patient is 68year-old female came in today for her regular 4 month follow-up appointment Labs done recently reviewed with the patient Hemoglobin A1c came back at 6.2 Vitamin-D level is slightly low, I have sent supplement for that Blood pressure is very high today, patient admits to eating pretzels last night Usually blood pressure is not that high but it is running in 140s most of the time, she is on atenolol 50 mg and lisinopril 10 mg I am increasing the lisinopril to 20 mg She is taking atorvastatin 10 mg and her LDL stable, patient is tolerating medication no side effects Sleeping difficulty: Continue trazodone 50 mg , medication is helping her Allergies are stable Follow-up 4 month, repeat labs before coming in 4 months [facility] Medical History Difficulty sleeping Ex-smoker Hypertension, essential Surgical History Cyst of finger History of bilateral tubal ligation Family History Father Stroke HTN (hypertension) Mother HTN (hypertension) Bone cancer Maternal Grandfather No problems noted. Maternal Grandmother No problems noted. Paternal Grandfather No problems noted. Paternal Grandmother No problems noted. Brother No problems noted. Sister No problems noted. Son No problems noted. Daughter No problems noted. Social History Housing: House Alcohol intake: never Patient Tobacco Use Status: Former Tobacco user e-Cigarette/Vaping Use: Never Used Second Hand Smoke Exposure: No service: No Current occupational status: retired Cognitive needs: No Hearing needs: No Vision needs: Yes (contacts) Questionnaire PHQ-9 Over the last 2 weeks, how often have you been bothered by any of the following problems? 1. Little interest or pleasure in doing things: not at all 2. Feeling down, depressed, or hopeless: not at all 3. Trouble falling or staying asleep, or sleeping too much: not at all 4. Feeling tired or having little energy: not at all 5. Poor appetite or overeating: not at all 6. Feeling bad about yourself - or that you are a failure or have let yourself or your family down: not at all 7. Trouble concentrating on things, such as reading the newspaper or watching television: not at all 8. Moving or speaking so slowly that other people could have noticed. Or the opposite - being so fidgety or restless that you have been moving around a lot more than usual: not at all 9. Thoughts that you would be better off or of hurting yourself in some way: not at all Total score: 0 Depression Screening Interpretation: Negative Depression Screening Done: Yes 66397 - PHQ-9 Billing: Yes Source: Developed by Drs. Howie Driver, Steffi Stevenson, Tommie Ruby and colleagues, with an educational dayday from [employer]. Thrive Questionnaire Date Thrive assessed: 01/04/24 I am a: Patient What is your living situation today?: I have a steady place to live Within the past 12 months, did the food you bought not last and you didn't have the money to get more?: Never true Within the past 12 months, did you worry whether your food would run out before you got money to buy more?: Never true Do you have trouble paying for medicines?: No Do you have trouble getting transportation to medical appointments?: No Do you have trouble paying your heating and electricity bill?: No Do you have trouble taking care of your child, family member or friend?: No Do you have trouble with day-to-day activities such as bathing, preparing meals, shopping, managing finances, etc.?: No Are you currently unemployed and looking for a job?: No Are you interested in more education?: No Please select the resources that you would like help with: None Currently or been in a relationship where the following occur: No concerns reported THRIVE Score: 0 AUDIT C Alcohol Use Questionnaire (AUDIT-C) 1. How often do you have a drink containing alcohol?: Never 2. How many drinks containing alcohol do you have on a typical day when you are drinking?: 1 or 2 3. How often do you have six or more drinks on one occasion?: Never Total Score: 0 Score Reviewed/Action Taken: Yes GOPI-7 AMB Questionnaire GOPI-7 Date GOPI - 7 assessed: 01/04/24 Feeling nervous, anxious, or on edge: 0 = Not at all Not being able to stop or control worryin = Not at all Worrying too much about different things: 0 = Not at all Trouble relaxin = Not at all Being so restless that it is hard to sit still: 0 = Not at all Becoming easily annoyed or irritable: 0 = Not at all Feeling afraid as if something awful might happen: 0 = Not at all Total GOPI-7 score (0-4 normal; 5-9 mild; 10-14 moderate; 15-21 severe): 0 Source: Developed by Drs. Howie Driver, Steffi Stevenson, Tommie Ruby and colleagues, with an educational dayday from [employer]. GOPI-7 Assessment Billing GOPI-7 Assessment Tool: GOPI-7 Assessment 06371 Review of Systems Const Denies chills and Denies fever(s) ENT Denies epistaxis and Denies nasal discharge Card Denies chest pain Resp Denies chest congestion, Denies cough and Denies hemoptysis GI Denies diarrhea and Denies nausea Skin/Breast Denies rash Neuro Reports no additional complaints Psych Reports no additional complaints Endo Reports no additional complaints Physical exam (Primary Care) Vital Signs: Last Vital Signs Pulse 75 01/04/24 11:53 BP 162/94 H 01/04/24 11:53 Pulse Ox 98 01/04/24 11:53 Oxygen Delivery Method Room Air 01/04/24 11:53 BMI result Body Mass Index 27.3 Tobacco/Smoking Status: Tobacco use Status Tobacco use date assessed 01/04/24 01/04/24 11:57 Patient Tobacco Use Status Former Tobacco user 01/04/24 11:57 e-Cigarette/Vaping Use Never Used 01/04/24 11:57 PHQ-9: PHQ-9 Score PHQ-9: Total score 0 01/04/24 12:21 Depression Screening Interpretation: Negative Thrive Assessment: Date of Thrive Assessment Date Thrive assessed 01/04/24 01/04/24 11:57 Currently or been in a relationship where the following occur: No concerns reported Const General: cooperative, comfortable and no acute distress Orientation/consciousness: patient oriented x3 HENMT Head: Yes normocephalic Eyes General: appearance normal, both eyes and all related structures Neck Neck: Yes supple Resp Effort & Inspection: normal respiratory effort, no cough and no stridor Cardio Rhythm: regular rhythm Heart sounds: S1 normal heart sound present and S2 normal heart sound present Skin General skin exam: turgor normal Neuro General: patient oriented x3, tone normal and moves all extremities Extrem Right lower extremity: no edema Left lower extremity: no edema Coding Level of Care Code Est Pt Level 4 (69266) Complex EM visit Add On G2211 Diagnoses Hypertension, essential I10 Difficulty sleeping G47.9 Impaired fasting blood sugar R73.01 Lipid disorder E78.9 Environmental allergies Z91.09 Vitamin D deficiency E55.9 Additional Codes GOPI-7 Assessment Billing - GOPI-7 Assessment Tool: GOPI-7 Assessment 06689 ([id number]) Assessment & Plan Assessment & Plan (1) Hypertension, essential: Code(s): I10 - Essential (primary) hypertension Category: Medical (2) Difficulty sleeping: Code(s): G47.9 - Sleep disorder, unspecified Category: Medical (3) Impaired fasting blood sugar: Code(s): R73.01 - Impaired fasting glucose Category: Medical (4) Lipid disorder: Code(s): E78.9 - Disorder of lipoprotein metabolism, unspecified Category: Medical (5) Environmental allergies: Code(s): Z91.09 - Other allergy status, other than to drugs and biological substances Category: Medical (6) Vitamin D deficiency: Code(s): E55.9 - Vitamin D deficiency, unspecified Category: Medical Plan Patient is 68year-old female came in today for her regular 4 month follow-up appointment Labs done recently reviewed with the patient Hemoglobin A1c came back at 6.2 Vitamin-D level is slightly low, I have sent supplement for that Blood pressure is very high today, patient admits to eating pretzels last night Usually blood pressure is not that high but it is running in 140s most of the time, she is on atenolol 50 mg and lisinopril 10 mg I am increasing the lisinopril to 20 mg She is taking atorvastatin 10 mg and her LDL stable, patient is tolerating medication no side effects Sleeping difficulty: Continue trazodone 50 mg , medication is helping her Allergies are stable Follow-up 4 month, repeat labs before coming in 4 months Orders: Orders Comprehensive Met. Panel 3 Months E55.9 - Vitamin D deficiency, unspecified, E78.9 - Disorder of lipoprotein metabolism, unspecified, G47.9 - Sleep disorder, unspecified, I10 - Essential (primary) hypertension, R73.01 - Impaired fasting glucose, Z91.09 - Other allergy status, other than to drugs and biological substances Hemoglobin A1c 3 Months E55.9 - Vitamin D deficiency, unspecified, E78.9 - Disorder of lipoprotein metabolism, unspecified, G47.9 - Sleep disorder, unspecified, I10 - Essential (primary) hypertension, R73.01 - Impaired fasting glucose, Z91.09 - Other allergy status, other than to drugs and biological substances Vitamin D 25-OH (D2 and D3) 3 Months E55.9 - Vitamin D deficiency, unspecified, E78.9 - Disorder of lipoprotein metabolism, unspecified, G47.9 - Sleep disorder, unspecified, I10 - Essential (primary) hypertension, R73.01 - Impaired fasting glucose, Z91.09 - Other allergy status, other than to drugs and biological substances Medications: New cholecalciferol (vitamin D3) 25 mcg PO DAILY 90 days 90 caps 1RF Changed From lisinopril 10 mg PO DAILY 90 tabs 0RF To lisinopril 20 mg PO DAILY 90 days 90 tabs 0RF
== END 2024-01-04 12:22 | disposition home or self-care (01) ==
LOC: HO.HMCC 11:51
PROVIDERS: PCP Internal Medicine; Visit Provider Internal Medicine
DX: I10 Essential (primary) hypertension (principal); G47.9 Sleep disorder, unspecified; R73.01 Impaired fasting glucose; E78.9 Disorder of lipoprotein metabolism, unspecified; Z91.09 Other allergy status, other than to drugs and biological substances; E55.9 Vitamin D deficiency, unspecified

== ENCOUNTER → 2024-01-04 11:51 | Outpatient (BNVA) | payer MEDICARE, SELFPAY | PROVIDERS: PCP Internal Medicine; Visit Provider Internal Medicine | DX: I10 Essential (primary) hypertension (principal); G47.9 Sleep disorder, unspecified; R73.01 Impaired fasting glucose; E78.9 Disorder of lipoprotein metabolism, unspecified; E55.9 Vitamin D deficiency, unspecified; Z91.09 Other allergy status, other than to drugs and biological substances | CPT/HCPCS: 96127; 99212 ==

== ENCOUNTER 2024-04-24 08:28 | Outpatient (REF) | payer MEDICARE, SELFPAY ==
[2024-04-24 11:04] LABS: Estimated Average Glucose 131 mg/dL; Hemoglobin A1C 168.0995 umol/L; Hemoglobin A1c % 6.2 % (<6.0); Total Hemoglobin (HGBA1C) 3778.3679 umol/L
[2024-04-24 11:29] LABS: Alanine Aminotransferase 24 U/L (0-31); Albumin Level 4.2 g/dL (3.5-5.0); Alkaline Phosphatase 98 U/L (39-117); Anion Gap 13 (12-20); Aspartate Amino Transferase 23 U/L (5-31); Bilirubin Total 0.5 mg/dL (0.0-1.0); Blood Urea Nitrogen 8 mg/dL (9-16); Calcium 9.6 mg/dL (8.4-10.2); Carbon Dioxide 28 mmol/L (22-29); Chloride 104 mmol/L (96-108); Estimated Glomerular Filt Rate > 60; Glucose Random 112 mg/dL (60-115); Potassium 4.1 mmol/L (3.3-5.1); Sodium 141 mmol/L (135-145); Total Protein 8.2 g/dL (6.5-8.0)
[2024-04-27 22:48] LABS: Vitamin D 25-OH, D2 <4 ng/mL; Vitamin D 25-OH, D3 23 ng/mL; Vitamin D 25-OH, Total 23 ng/mL (30-100)
== END 2024-04-24 08:29 | disposition home or self-care (01) ==
LOC: HO.HMGCLDS 08:28
PROVIDERS: PCP Internal Medicine; Visit Provider Internal Medicine
DX: I10 Essential (primary) hypertension (principal); G47.9 Sleep disorder, unspecified; R73.01 Impaired fasting glucose; E78.9 Disorder of lipoprotein metabolism, unspecified; Z91.09 Other allergy status, other than to drugs and biological substances; E55.9 Vitamin D deficiency, unspecified
CPT/HCPCS: 36415; 80053; 82306; 83036

== ENCOUNTER 2024-05-03 11:55 | Outpatient (AMB) | payer MEDICARE, SELFPAY ==
[2024-05-03 11:59] VITALS: BP 124/70; PULSE 78; RESP 16; TEMP 36.3; O2SAT 98; BMI 26.6
--- NOTE | 2024-05-03 11:59 | A.OFFPC_ITS ---
Vital Signs 05/03/24 11:59 Height 5 ft 6 in Weight 165 lb BMI 26.6 BP 124/70 Blood Pressure Location Lt brachial Position Sitting Respiration 16 Pulse 78 Pulse Source Pulse Oximeter Temp 97.4 F Temp Source Oral Pulse Oximetry (%) 98 Oxygen Delivery Method Room Air Intake Visit Reasons: 4 month follow up Allergies No Known Allergies Allergy (Verified 05/03/24 12:04) Tobacco use date assessed: 05/03/24 Fall risk assessment: No Falls in past year Last assessed Fall Risk: 05/03/24 Dental Screening Dental Screen Date: 05/03/24 Did you have a dental visit in the last 12 months?: Yes Did you have a dental problem in the last 6 months where you did not have access to dental care?: No Was dental information given to patient?: Patient has dentist HPI 4 month follow up HPI Details History - The patient is a 68-year-old female pr esenting for follow-up for chronic conditions including essential hypertension, hyperlipidemia, and insomnia. - She reports stable blood pressure cont rol at 124/70 mmHg, with medications atenolol and lisinopril in use. - The patient mentions a recent weight l oss linked to reduced appetite following a respiratory illness, which she believes led to an episode of acute bronchitis. - Her vitamin D levels remain low necess itating continued supplementation . - Previous tests showed prediabetes with an HbA1c of 6.2% and normal kidney function. - The patient's concern regarding immuni ty against measles was discussed, with consideration for measles antibody titer testing due to potential susceptibility. Patient says that she will get back to me on that Problem List - Essential Hypertension - Low Vitamin D - Hyperlipidemia - Insomnia - Prediabetes - Recent Acute Bronchitis Patient Instructions - Continue taking prescribed medications : atenolol, lisinopril, atorvastatin, trazodone, and vitamin D. - Maintain awareness of vitamin D levels and continue supplementation as necessary. - Observe precautions for maintaining [facility]; consider future testing for measles immunity if an outbreak occurs. - Monitor symptoms and seek evaluation i f respiratory symptoms worsen. - Engage in regular exercise to maintain health and manage prediabetes. - Attend scheduled physical examination at the end of August. Review of Systems - General: No fever no chills - Neurological: No headaches no dizziness - Ear nose throat: No sore throat no hearing difficulty no ear pain - Cardiovascular: No syncope, no chest pain, no palpitations - Gastrointestinal: No nausea vomiting or diarrhea - Endocrine: No polyuria polydipsia no heat intolerance - Genitourinary: No dysuria , no blood in urine Physical Exam General: No acute distress HEENT: No acute findings Neck: Supple Respiratory system: Lungs are fine, no audible wheeze cardiovascular: S1-S2 regular in rate and rhythm Gastrointestinal: No pain Extremities: No new findings [employer]ER: Alert awake oriented x3 motor sensory intact Skin: Normal turgor [facility] Medical History Difficulty sleeping Ex-smoker Hypertension, essential Surgical History Cyst of finger History of bilateral tubal ligation Family History Father Stroke HTN (hypertension) Mother HTN (hypertension) Bone cancer Maternal Grandfather No problems noted. Maternal Grandmother No problems noted. Paternal Grandfather No problems noted. Paternal Grandmother No problems noted. Brother No problems noted. Sister No problems noted. Son No problems noted. Daughter No problems noted. Social History Housing: House Alcohol intake: never Patient Tobacco Use Status: Former Tobacco user e-Cigarette/Vaping Use: Never Used Second Hand Smoke Exposure: No service: No Current occupational status: retired Cognitive needs: No Hearing needs: No Vision needs: Yes (contacts) Questionnaire PHQ-9 Over the last 2 weeks, how often have you been bothered by any of the following problems? 1. Little interest or pleasure in doing things: not at all 2. Feeling down, depressed, or hopeless: not at all 3. Trouble falling or staying asleep, or sleeping too much: not at all 4. Feeling tired or having little energy: not at all 5. Poor appetite or overeating: not at all 6. Feeling bad about yourself - or that you are a failure or have let yourself or your family down: not at all 7. Trouble concentrating on things, such as reading the newspaper or watching television: not at all 8. Moving or speaking so slowly that other people could have noticed. Or the opposite - being so fidgety or restless that you have been moving around a lot more than usual: not at all 9. Thoughts that you would be better off or of hurting yourself in some way: not at all Total score: 0 Depression Screening Interpretation: Negative Depression Screening Done: Yes [id number] - PHQ-9 Billing: Yes Source: Developed by Drs. Howie Driver, Steffi Stevenson, Tommie Ruby and colleagues, with an educational dayday from [employer]. Thrive Questionnaire Date Thrive assessed: 04/26/24 I am a: Patient What is your living situation today?: I have a steady place to live Within the past 12 months, did the food you bought not last and you didn't have the money to get more?: Never true Within the past 12 months, did you worry whether your food would run out before you got money to buy more?: Never true Do you have trouble paying for medicines?: No Do you have trouble getting transportation to medical appointments?: No Do you have trouble paying your heating and electricity bill?: No Do you have trouble taking care of your child, family member or friend?: No Do you have trouble with day-to-day activities such as bathing, preparing meals, shopping, managing finances, etc.?: No Are you currently unemployed and looking for a job?: No Are you interested in more education?: No Please select the resources that you would like help with: None Currently or been in a relationship where the following occur: No concerns reported THRIVE Score: 0 AUDIT C Alcohol Use Questionnaire (AUDIT-C) 1. How often do you have a drink containing alcohol?: Never 3. How often do you have six or more drinks on one occasion?: Never Total Score: 0 GOPI-7 AMB Questionnaire GOPI-7 Date GOPI - 7 assessed: 01/04/24 Feeling nervous, anxious, or on edge: 0 = Not at all Not being able to stop or control worryin = Not at all Worrying too much about different things: 0 = Not at all Trouble relaxin = Not at all Being so restless that it is hard to sit still: 0 = Not at all Becoming easily annoyed or irritable: 0 = Not at all Feeling afraid as if something awful might happen: 0 = Not at all Total GOPI-7 score (0-4 normal; 5-9 mild; 10-14 moderate; 15-21 severe): 0 Source: Developed by Drs. Howie Driver, Steffi Stevenson, Tommie Ruby and colleagues, with an educational dayday from [employer]. Physical exam (Primary Care) Vital Signs: Last Vital Signs Temp 97.4 F 05/03/24 11:59 Pulse 78 05/03/24 11:59 Resp 16 05/03/24 11:59 BP 124/70 05/03/24 11:59 Pulse Ox 98 05/03/24 11:59 Oxygen Delivery Method Room Air 05/03/24 11:59 BMI result Body Mass Index 26.6 Tobacco/Smoking Status: Tobacco use Status Tobacco use date assessed 05/03/24 05/03/24 12:06 Patient Tobacco Use Status Former Tobacco user 05/03/24 12:00 e-Cigarette/Vaping Use Never Used 05/03/24 12:00 PHQ-9: PHQ-9 Score PHQ-9: Total score 0 05/03/24 12:00 Depression Screening Interpretation: Negative Thrive Assessment: Date of Thrive Assessment Date Thrive assessed 04/26/24 05/03/24 12:00 Currently or been in a relationship where the following occur: No concerns reported Coding Level of Care Code Est Pt Level 4 (70708) Complex EM visit Add On G2211 Diagnoses Hypertension, essential I10 Difficulty sleeping G47.9 Impaired fasting blood sugar R73.01 Lipid disorder E78.9 Environmental allergies Z91.09 Vitamin D deficiency E55.9 Additional Codes PHQ-9 - 39173 - PHQ-9 Billing: Yes ([id number]) Assessment & Plan Assessment & Plan (1) Hypertension, essential: Code(s): I10 - Essential (primary) hypertension Category: Medical (2) Difficulty sleeping: Code(s): G47.9 - Sleep disorder, unspecified Category: Medical (3) Impaired fasting blood sugar: Code(s): R73.01 - Impaired fasting glucose Category: Medical (4) Lipid disorder: Code(s): E78.9 - Disorder of lipoprotein metabolism, unspecified Category: Medical (5) Environmental allergies: Code(s): Z91.09 - Other allergy status, other than to drugs and biological substances Category: Medical (6) Vitamin D deficiency: Code(s): E55.9 - Vitamin D deficiency, unspecified Category: Medical Plan History - The patient is a 68-year-old female presenting for follow-up for chronic conditions including essential hypertension, hyperlipidemia, and insomnia. - She reports stable blood pressure control at 124/70 mmHg, with medications atenolol and lisinopril in use. - The patient mentions a recent weight loss linked to reduced appetite following a respiratory illness, which she believes led to an episode of acute bronchitis. - Her vitamin D levels remain low necessitating continued supplementation . - Previous tests showed prediabetes with an HbA1c of 6.2% and normal kidney function. - The patient's concern regarding immunity against measles was discussed, with consideration for measles antibody titer testing due to potential atkins sceptibility. Patient says that she will get back to me on that Problem List - Essential Hypertension - Low Vitamin D - Hyperlipidemia - Insomnia - Prediabetes - Recent Acute Bronchitis Patient Instructions - Continue taking prescribed medications: atenolol, lisinopril, atorvastatin, trazodone, and vitamin D. - Maintain awareness of vitamin D levels and continue supplementation as necessary. - Observe precautions for maintaining immune health; consider future testing for measles immunity if an outbreak occurs. - Monitor symptoms and seek evaluation if respiratory symptoms worsen. - Engage in regular exercise to maintain health and manage prediabetes. - Attend scheduled physical examination at the end of August. Orders: Orders Hemoglobin A1c 3 Months E55.9 - Vitamin D deficiency, unspecified, E78.9 - Disorder of lipoprotein metabolism, unspecified, G47.9 - Sleep disorder, un specified, I10 - Essential (primary) hypertension, R73.01 - Impaired fasting glucose, Z91.09 - Other allergy status, other than to drugs and biological substances Complete Blood Count Auto Diff 3 Months E55.9 - Vitamin D deficiency, unspecified, E78.9 - Disorder of lipoprotein metabolism, unspecified, G47.9 - Sleep disorder, unspecified, I10 - Essential (primary) hypertension, R73.01 - Impaired fasting glucose, Z91.09 - Other allergy status, other than to drugs and biological substances Lipid Panel 3 Months E55.9 - Vitamin D deficiency, unspecified, E78.9 - Disorder of lipoprotein metabolism, unspecified, G47.9 - Sleep disorder, unspecified, I10 - Essential (primary) hypertension, R73.01 - Impaired fasting glucose, Z91.09 - Other allergy status, other than to drugs and biological substances Vitamin D 25-OH (D2 and D3) 3 Months E55.9 - Vitamin D deficiency, unspecified, E78.9 - Disorder of lipoprotein metabolism, unspecified, G47.9 - Sleep disorder, unspecified, I10 - Essential (primary) hypertension, R73.01 - Impaired fasting glucose, Z91.09 - Other allergy status, other than to drugs and biological atkins bstances Comprehensive [place]. Panel Fast 3 Months E55.9 - Vitamin D deficiency, unspecified, E78.9 - Disorder of lipoprotein metabolism, unspecified, G47.9 - Sleep disorder, unspecified, I10 - Essential (primary) hypertension, R73.01 - Impaired fasting glucose, Z91.09 - Other allergy status, other than to drugs and biological substances Vitamin B12 3 Months E55.9 - Vitamin D deficiency, unspecified, E78.9 - Disorder of lipoprotein metabolism, unspecified, G47.9 - Sleep disorder, unspecified, I10 - Essential (primary) hypertension, R73.01 - Impaired fasting glucose, Z91.09 - Other allergy status, other than to drugs and biological substances TSH reflex Free T4 3 Months E55.9 - Vitamin D deficiency, unspecified, E78.9 - Disorder of lipoprotein metabolism, unspecified, G47.9 - Sleep disorder, unspecified, I10 - Essential (primary) hypertension, R73.01 - Impaired fasting glucose, Z91.09 - Other allergy status, other than to drugs and biological substances
== END 2024-05-03 12:28 | disposition home or self-care (01) ==
PROVIDERS: PCP Internal Medicine; Visit Provider Internal Medicine
DX: I10 Essential (primary) hypertension (principal); G47.9 Sleep disorder, unspecified; R73.01 Impaired fasting glucose; E78.9 Disorder of lipoprotein metabolism, unspecified; Z91.09 Other allergy status, other than to drugs and biological substances; E55.9 Vitamin D deficiency, unspecified

== ENCOUNTER → 2024-05-03 11:55 | Outpatient (BNVA) | payer MEDICARE, SELFPAY | PROVIDERS: PCP Internal Medicine; Visit Provider Internal Medicine | DX: I10 Essential (primary) hypertension (principal); G47.9 Sleep disorder, unspecified; R73.01 Impaired fasting glucose; E78.9 Disorder of lipoprotein metabolism, unspecified; E55.9 Vitamin D deficiency, unspecified; Z91.09 Other allergy status, other than to drugs and biological substances | CPT/HCPCS: 96127; 99212 ==

== ENCOUNTER 2024-10-09 11:30 | Outpatient (REF) | payer MEDICARE, SELFPAY ==
--- OUTSIDE RECORDS SUMMARY | 2024-10-09 12:08 | XMS_ITS | Patient Health Record ---
[facility] Organization [facility] Address [address] [place] [address] Support Name Relationship Address Phone Karina Sauceda Guarantor Unknown Unavailable Reason For Referral No Information Plan Of Treatment No Information Insurance Providers Payer Name Payer Address Payer Phone Subscriber Number Group Number Insured Name Patient Relationship to Insured Coverage Start Date Coverage End Date [facility] [id number] [place] Mcgrath [phone] [id number] Anny Sauceda Self - patient is the insured
== END 2024-10-09 11:31 | disposition home or self-care (01) ==
LOC: HO.MAMMO 11:30
PROVIDERS: PCP Internal Medicine; Visit Provider Internal Medicine
DX: Z12.31 Encounter for screening mammogram for malignant neoplasm of breast (principal)
CPT/HCPCS: 77063; 77067

== ENCOUNTER → 2024-10-09 11:45 | Outpatient (BNV) | payer MEDICARE, SELFPAY | PROVIDERS: PCP Internal Medicine; Visit Provider Radiology Body Imaging | DX: Z12.31 Encounter for screening mammogram for malignant neoplasm of breast (principal) | CPT/HCPCS: 77063; 77067 ==

== ENCOUNTER 2024-10-13 11:51 | Outpatient (AMB) | payer MEDICARE, SELFPAY ==
[2024-10-13 11:54] VITALS: BP 142/80; PULSE 77; O2SAT 97; BMI 26.6
--- NOTE | 2024-10-13 11:54 | A.OFFPC_ITS ---
Vital Signs 10/13/24 11:54 Height 5 ft 6 in Weight 165 lb BMI 26.6 BP 142/80 H Blood Pressure Location Lt brachial Position Sitting Pulse 77 Pulse Source Pulse Oximeter Pulse Oximetry (%) 97 Oxygen Delivery Method Room Air Intake Visit Reasons: PE Allergies No Known Allergies Allergy (Verified 10/13/24 11:54) Medication List - Last Reconciled 10/13/24 by Divine Carney MD aspirin (Adult Low Dose Aspirin) 81 mg PO DAILY atenolol 50 mg PO DAILY 90 days atorvastatin 10 mg PO DAILY 90 days cholecalciferol (vitamin D3) 25 mcg PO DAILY 90 days lisinopril 20 mg PO DAILY 90 days trazodone 50 mg PO BEDTIME PRN 90 days Tobacco use date assessed: 05/03/24 Fall risk assessment: No Falls in past year Last assessed Fall Risk: 10/13/24 Dental Screening Dental Screen Date: 05/03/24 HPI PE HPI Details History of Present Illness The patient is a 69 year old female presenting with an annual physical examination. Essential Hypertension: - Blood pressure has been fluctuating, p reviously averaging around 120-124 mmHg in prior visits. - Current blood pressure at home recorde d as approximately 130/83 mmHg. - No associated symptoms of headache, bl urred vision, or chest pain reported. Prediabetes: - A1c was last recorded as 6.2, indicati ng a state of prediabetes. Hyperlipidemia: - Currently managed with atorvastatin 10 mg. Depressive Disorder: - Managed with trazodone for sleep. Osteoarthritis: - Intermittent knee aches reported, desc ribed as occasional and fleeting. - No significant impact on daily activit ies mentioned. Vitamin D Deficiency: - Previously identified with vitamin D sujatha castillo at 23 ng/mL; below the recommended level of 50 ng/mL. Hearing Loss: - Patient reports difficulty hearing, wi th noted need for audiology evaluation. Medical History: - Essential Hypertension - Prediabetes - Hyperlipidemia - Depressive Disorder - Vitamin D Deficiency - Osteoarthritis Family History: - Negative for breast cancer Health Maintenance - Mammogram performed; awaiting results - Pneumonia vaccination up to date - Shingles vaccine updated with two dose s in 2020 - Colon Cancer Screening: Cologuard kit to be mailed, no prior colonoscopy performed due to patient's preference. - Bone Density: DEXA scan ordered, recom mended for age - Pap smear: Last advised no need for fu rther screening Medications - Atenolol 50 mg (for Essential Hyperten martinez) - Lisinopril 20 mg (for Essential Hypert ension) - Atorvastatin 10 mg (for Hyperlipidemia ) - Trazodone (for sleep, associated with depressive symptoms) - Vitamin D (for Vitamin D Deficiency) - Aspirin (no specific indication mentjhon oscar) Patient Instructions - Continue current medications including atenolol, lisinopril, atorvastatin, trazodone, vitamin D, and aspirin. - Complete fasting labs they were ordere d last visit in April - Await call for Cologuard kit and follo w instructions for sample collection and shipping. - Schedule a hearing test appointment at [facility]. - Schedule and undergo bone density scan . - Follow up in four months for continuat ion of care. Review of Systems - General: No fever no chills - Neurological: No headaches no dizzin ess - Ear nose throat: No sore throat no ear pain - Cardiovascular: No syncope, no chest pain, no palpitations - Gastrointestinal: No nausea vomiting or diarrhea - Endocrine: No polyuria polydipsia no heat intolerance - Genitourinary: No dysuria - Skin: No new complaints Physical Exam General: Cooperative, healthy appearing, comfortable, no acute distress Orientation: Patient oriented x3 Head: Normal to inspection Ears: No wax Nose: Normal external nose present Face and sinus: Normal facial exam Eyes: Appearance normal, extraocular movement intact pupils reactive Neck: Normal visual inspection and supple Respiratory: Normal respiratory effort and able to speak in complete sentences. Clear to auscultation, no stridor Cardiovascular: S1 and S2 RRR GI: Normal to inspection. Soft to palpation and nontender Breast exam benign Skin: Turgor normal, no acute findings Neuro: Patient oriented x3, motor sensory intact, balance intact, tandem pass Extremities: Normal to inspection, range of motion intact [facility] Medical History Difficulty sleeping Ex-smoker Hypertension, essential Surgical History Cyst of finger History of bilateral tubal ligation Family History Father Stroke HTN (hypertension) Mother HTN (hypertension) Bone cancer Maternal Grandfather No problems noted. Maternal Grandmother No problems noted. Paternal Grandfather No problems noted. Paternal Grandmother No problems noted. Brother No problems noted. Sister No problems noted. Son No problems noted. Daughter No problems noted. Social History Housing: House Alcohol intake: never Patient Tobacco Use Status: Former Tobacco user e-Cigarette/Vaping Use: Never Used Second Hand Smoke Exposure: No service: No Current occupational status: retired Cognitive needs: No Hearing needs: No Vision needs: Yes (contacts) Questionnaire Thrive Questionnaire Date Thrive assessed: 04/26/24 I am a: Patient What is your living situation today?: I have a steady place to live Within the past 12 months, did the food you bought not last and you didn't have the money to get more?: Never true Within the past 12 months, did you worry whether your food would run out before you got money to buy more?: Never true Do you have trouble paying for medicines?: No Do you have trouble getting transportation to medical appointments?: No Do you have trouble paying your heating and electricity bill?: No Do you have trouble taking care of your child, family member or friend?: No Do you have trouble with day-to-day activities such as bathing, preparing meals, shopping, managing finances, etc.?: No Are you currently unemployed and looking for a job?: No Are you interested in more education?: No Please select the resources that you would like help with: None Currently or been in a relationship where the following occur: No concerns reported THRIVE Score: 0 GOPI-7 AMB Questionnaire GOPI-7 Date GOPI - 7 assessed: 10/13/24 Feeling nervous, anxious, or on edge: 0 = Not at all Not being able to stop or control worryin = Not at all Worrying too much about different things: 0 = Not at all Trouble relaxin = Not at all Being so restless that it is hard to sit still: 0 = Not at all Becoming easily annoyed or irritable: 0 = Not at all Feeling afraid as if something awful might happen: 0 = Not at all Total GOPI-7 score (0-4 normal; 5-9 mild; 10-14 moderate; 15-21 severe): 0 Source: Developed by Drs. Howie Driver, Steffi Stevenson, Tommie Ruby and colleagues, with an educational dayday from [employer]. GOPI-7 Assessment Billing GOPI-7 Assessment Tool: GOPI-7 Assessment 10288 Physical exam (Primary Care) Vital Signs: Last Vital Signs Pulse 77 10/13/24 11:54 BP 142/80 H 10/13/24 11:54 Pulse Ox 97 10/13/24 11:54 Oxygen Delivery Method Room Air 10/13/24 11:54 BMI result Body Mass Index 26.6 Tobacco/Smoking Status: Tobacco use Status Tobacco use date assessed 05/03/24 10/13/24 11:57 Patient Tobacco Use Status Former Tobacco user 10/13/24 11:57 e-Cigarette/Vaping Use Never Used 10/13/24 11:57 Thrive Assessment: Date of Thrive Assessment Date Thrive assessed 04/26/24 10/13/24 11:57 Currently or been in a relationship where the following occur: No concerns reported Coding Level of Care Code Est Pt Level 3 (13091) Est Pt Prev Care >65y(57098) Diagnoses Encounter for general adult medical examination with abnormal findings Z00.01 Hearing difficulty of both ears H91.93 Menopausal state N95.1 Hypertension, essential I10 Difficulty sleeping G47.9 Impaired fasting blood sugar R73.01 Lipid disorder E78.9 Environmental allergies Z91.09 Vitamin D deficiency E55.9 Additional Codes GOPI-7 Assessment Billing - GOPI-7 Assessment Tool: GOPI-7 Assessment 71372 ([id number]) Assessment & Plan Assessment & Plan (1) Encounter for general adult medical examination with abnormal findings: Code(s): Z00.01 - Encounter for general adult medical examination with abnormal findings Category: Medical (2) Hearing difficulty of both ears: Code(s): H91.93 - Unspecified hearing loss, bilateral Category: Medical (3) Menopausal state: Code(s): N95.1 - Menopausal and female climacteric states Category: Medical (4) Hypertension, essential: Code(s): I10 - Essential (primary) hypertension Category: Medical (5) Difficulty sleeping: Code(s): G47.9 - Sleep disorder, unspecified Category: Medical (6) Impaired fasting blood sugar: Code(s): R73.01 - Impaired fasting glucose Category: Medical (7) Lipid disorder: Code(s): E78.9 - Disorder of lipoprotein metabolism, unspecified Category: Medical (8) Environmental allergies: Code(s): Z91.09 - Other allergy status, other than to drugs and biological substances Category: Medical (9) Vitamin D deficiency: Code(s): E55.9 - Vitamin D deficiency, unspecified Category: Medical Plan History of Present Illness The patient is a 69 year old female presenting with an annual physical exa mination. Essential Hypertension: - Blood pressure has been fluctuating, previously averaging around 120-124 mmHg in prior visits. - Current blood pressure at home recorded as approximately 130/83 mmHg. - No associated symptoms of headache, blurred vision, or chest pain reported. Prediabetes: - A1c was last recorded as 6.2, indicating a state of prediabetes. Hyperlipidemia: - Currently managed with atorvastatin 10 mg. Depressive Disorder: - Managed with trazodone for sleep. Osteoarthritis: - Intermittent knee aches reported, described as occasional and fleeting. - No significant impact on daily activities mentioned. Vitamin D Deficiency: - Previously identified with vitamin D level at 23 ng/mL; below the recommended level of 50 ng/mL. Hearing Loss: - Patient reports difficulty hearing, with noted need for audiology evaluation. Medical History: - Essential Hypertension - Prediabetes - Hyperlipidemia - Depressive Disorder - Vitamin D Deficiency - Osteoarthritis Family History: - Negative for breast cancer Health Maintenance - Mammogram performed; awaiting results - Pneumonia vaccination up to date - Shingles vaccine updated with two doses in 2020 - Colon Cancer Screening: Cologuard kit to be mailed, no prior colonoscopy performed due to patient's preference. - Bone Density: DEXA scan ordered, recommended for age - Pap smear: Last advised no need for further screening Medications - Atenolol 50 mg (for Essential Hypertension) - Lisinopril 20 mg (for Essential Hypertension) - Atorvastatin 10 mg (for Hyperlipidemia) - Trazodone (for sleep, associated with depressive symptoms) - Vitamin D (for Vitamin D Deficiency) - Aspirin (no specific indication mentioned) Patient Instructions - Continue current medications including atenolol, lisinopril, atorvastatin, trazodone, vitamin D, and aspirin. - Complete fasting labs they were ordered last visit in April - Await call for Cologuard kit and follow instructions for sample collection and shipping. - Schedule a hearing test appointment at [facility]. - Schedule and undergo bone density scan. - Follow up in four months for continuation of care. Orders: Orders XR DEXA axial skeleton Today N95.1 - Menopausal and female climacteric states Referrals Cologuard Test Z12.11 - Encounter for screening for malignant neoplasm of colon Audiology Referral H91.93 - Unspecified hearing loss, bilateral Medications: Refilled cholecalciferol (vitamin D3) 25 mcg PO DAILY 90 caps 1RF 90 days
--- OUTSIDE RECORDS SUMMARY | 2024-10-13 11:54 | XMS_ITS | Patient Health Record ---
[facility] Address [address] [place] [address] Support Name Relationship Address Phone Karina Sauceda Guarantor Unknown Unavailable Reason For Referral No Information Plan Of Treatment No Information Insurance Providers Payer Name Payer Address Payer Phone Subscriber Number Group Number Insured Name Patient Relationship to Insured Coverage Start Date Coverage End Date [facility] [address] [place] Mcgrath [phone] [id number] Anny Sauceda Self - patient is the insured
== END 2024-10-13 12:22 | disposition home or self-care (01) ==
LOC: HO.HMCC 11:51
PROVIDERS: Visit Provider Internal Medicine
DX: Z00.01 Encounter for general adult medical examination with abnormal findings (principal); H91.93 Unspecified hearing loss, bilateral; N95.1 Menopausal and female climacteric states; I10 Essential (primary) hypertension; G47.9 Sleep disorder, unspecified; R73.01 Impaired fasting glucose; E78.9 Disorder of lipoprotein metabolism, unspecified; Z91.09 Other allergy status, other than to drugs and biological substances; E55.9 Vitamin D deficiency, unspecified

== ENCOUNTER → 2024-10-13 11:51 | Outpatient (BNVA) | payer MEDICARE, SELFPAY | PROVIDERS: Visit Provider Internal Medicine | DX: Z00.01 Encounter for general adult medical examination with abnormal findings (principal); I10 Essential (primary) hypertension; R73.03 Prediabetes; E78.5 Hyperlipidemia, unspecified; F32.A Depression, unspecified; E55.9 Vitamin D deficiency, unspecified; H91.93 Unspecified hearing loss, bilateral; N95.1 Menopausal and female climacteric states; G47.9 Sleep disorder, unspecified; R73.01 Impaired fasting glucose; E78.9 Disorder of lipoprotein metabolism, unspecified; Z91.09 Other allergy status, other than to drugs and biological substances | CPT/HCPCS: 96127; 99212; 99397 ==

== ENCOUNTER 2024-10-25 08:56 | Outpatient (REF) | payer MEDICARE, SELFPAY ==
--- OUTSIDE RECORDS SUMMARY | 2024-10-25 09:26 | XMS_ITS | Patient Health Record ---
[facility] Address [address] [place] [address] Support Name Relationship Address Phone Karina Sauceda Guarantor Unknown Unavailable Reason For Referral No Information Plan Of Treatment No Information Insurance Providers Payer Name Payer Address Payer Phone Subscriber Number Group Number Insured Name Patient Relationship to Insured Coverage Start Date Coverage End Date [facility] [address] [place] Mcgrath [phone] [id number] Anny Sauceda Self - patient is the insured
[2024-10-25 10:01] LABS: MANUAL DIFF FLAG NO
[2024-10-25 10:07] LABS: Hematocrit 43.3 % (37.0-47.0); Hemoglobin 14.4 g/dl (12.0-16.0); Imm Gran Abs Auto 0.01 X10*3/uL (0.00-0.03); Imm Gran Pct Auto 0.1 % (0.0-0.4); Lymphocytes Absolute Auto 2.9 X10*3/uL (1.2-4.9); Mean Corpuscular HGB Conc 33.3 g/dl (31.0-35.0); Mean Corpuscular Hemoglobin 31.4 pg (27.0-33.0); Mean Corpuscular Volume 94.3 fL (80.0-98.0); NRBC Abs Auto 0.000 X10*3/uL (0.0-0.012); NRBC Pct Auto 0.0 /100WBC (0.0-0.2); Platelet Count 233 X10*3/uL (160-400); Red Blood Count 4.59 X10*6/uL (4.20-5.50); White Blood Count 7.1 X10*3/uL (4.8-10.8)
[2024-10-25 10:36] LABS: Alanine Aminotransferase 33 U/L (0-31); Albumin Level 4.5 g/dL (3.5-5.0); Alkaline Phosphatase 104 U/L (39-117); Anion Gap 11 (12-20); Aspartate Amino Transferase 39 U/L (5-31); Blood Urea Nitrogen 8 mg/dL (9-16); Calcium 9.1 mg/dL (8.4-10.2); Carbon Dioxide 26 mmol/L (22-29); Chloride 106 mmol/L (96-108); Cholesterol 157 mg/dL (<200); Estimated Glomerular Filt Rate > 60; HDL Cholesterol 42 mg/dL (>40); Potassium 4.0 mmol/L (3.3-5.1); Sodium 139 mmol/L (135-145); Total Protein 7.4 g/dL (6.5-8.0); Triglycerides 139 mg/dL (<150)
[2024-10-25 10:44] LABS: Vitamin B12 390 pg/mL (200-900)
[2024-10-25 10:51] LABS: Hemoglobin A1C 174.6007 umol/L; Total Hemoglobin (HGBA1C) 3721.9193 umol/L
[2024-10-29 17:04] LABS: Vitamin D 25-OH, D2 <4 ng/mL; Vitamin D 25-OH, D3 37 ng/mL; Vitamin D 25-OH, Total 37 ng/mL (30-100)
== END 2024-10-25 08:57 | disposition home or self-care (01) ==
LOC: HO.HMGCLDS 08:56
PROVIDERS: PCP Internal Medicine; Visit Provider Internal Medicine
DX: I10 Essential (primary) hypertension (principal); R73.01 Impaired fasting glucose; E78.9 Disorder of lipoprotein metabolism, unspecified; G47.9 Sleep disorder, unspecified; E55.9 Vitamin D deficiency, unspecified; Z91.09 Other allergy status, other than to drugs and biological substances
CPT/HCPCS: 36415; 80053; 80061; 82306; 82607; 83036; 84443; 85025

== ENCOUNTER 2024-12-19 12:43 | Outpatient (REF) | payer MEDICARE, SELFPAY ==
--- NOTE | ~2024-12-19 | MM_ITS ---
EXAMINATION: DXA BONE DENSITY AXIAL HISTORY: N95.1 - Menopausal and female climacteric states TECHNIQUE: Angiodroid Dual energy absorptiometry (DEXA) of the lumbar spine, total left hip, and femoral neck was performed. COMPARISON: There are no prior studies for comparison. FINDINGS: The bone mineral density of the lumbar spine is 1.129 g/cm2, corresponding to a T-score of -0.3, and a Z-score of 1.0. This is indicative of normal bone mineral density. The bone mineral density of the left total hip is 1.016 g/cm2, corresponding to a T-score of 0.1, and a Z-score of 1.2. This is indicative of normal bone mineral density. The bone mineral density of the left femoral neck is 0.850 g/cm2, corresponding to a T-score of -1.4, and a Z-score of 0.1. This is indicative of osteopenia. FRACTURE RISK: The FRAX index suggests a risk of major osteoporotic fracture of 9.3%, and of hip fracture 1.1%. MM/XR DEXA axial skeleton IMPRESSION: Based on bone mineral density, and according to World Health Organization (WHO) criteria, the diagnosis is consistent with osteopenia. Statistically, 68% of repeat scans fall within 1 SD (+/- 0.010 g/cm2 for AP spine L1-L4) and 1 SD (+/- 0.012 g/cm2 for femur total) FRAX is a trademark of the [employer]'s [place] for Metabolic Bone Disease, a World Health Organization (WHO) Collaborating Center. Electronically signed by: Howie Flores MD 12/19/2024 01:18 PM EDT
== END 2024-12-19 12:44 | disposition home or self-care (01) ==
LOC: HO.MAMMO 12:43
PROVIDERS: PCP Internal Medicine; Visit Provider Internal Medicine
DX: Z13.820 Encounter for screening for osteoporosis (principal); Z78.0 Asymptomatic menopausal state
CPT/HCPCS: 77080

== ENCOUNTER → 2024-12-19 13:00 | Outpatient (BNV) | payer MEDICARE, SELFPAY | PROVIDERS: PCP Internal Medicine; Visit Provider Radiology Diagnostic Radiology | DX: E28.39 Other primary ovarian failure (principal) | CPT/HCPCS: 77080 ==

== ENCOUNTER 2025-02-13 11:08 | Outpatient (AMB) | payer MEDICARE, SELFPAY ==
[2025-02-13 11:15] VITALS: BP 132/78; PULSE 83; O2SAT 96; BMI 27.3
--- NOTE | 2025-02-13 11:15 | A.OFFPC_ITS ---
Vital Signs 02/13/25 11:15 Height 5 ft 6 in Weight 169 lb BMI 27.3 BP 132/78 Blood Pressure Location Rt brachial Position Sitting Pulse 83 Pulse Source Pulse Oximeter Pulse Oximetry (%) 96 Intake Visit Reasons: 4 months f/up Allergies No Known Allergies Allergy (Verified 02/13/25 11:15) Medication List - Last Reconciled 02/13/25 by Divine Carney MD aspirin (Adult Low Dose Aspirin) 81 mg PO DAILY atenolol 50 mg PO DAILY 90 days atorvastatin 10 mg PO DAILY 90 days cholecalciferol (vitamin D3) 25 mcg PO DAILY 90 days lisinopril 20 mg PO DAILY 90 days trazodone 50 mg PO BEDTIME PRN 90 days Tobacco use date assessed: 05/03/24 Dental Screening Dental Screen Date: 05/03/24 HPI 4 months f/up HPI Details History of Present Illness The patient is an 69 year old female presenting for a routine follow-up. Essential Hypertension: - The patient is being treated for hyper tension with atenolol 50 mg and lisinopril 20 mg daily. - She monitors her blood pressure at [facility], with a recent reading of 128/80 mmHg. Health Maintenance: - The patient had a negative Cologuard t est in October. - She received her COVID booster and flu shot about a month ago. - Recent lab work from September showed a B 12 level of 390, fasting glucose of 6.4, and slightly elevated liver enzymes. - She takes vitamin B12 occasionally and vitamin D supplements regularly. - She does not drink alcohol. Diagnostic Results: - Complete Blood Count (CBC) in September w as normal. - Kidney function tests in September were g ood. - Fasting glucose in September was 6.4. - Liver enzymes in September were slightly elevated. - Vitamin B12 in September was 390. - Thyroid function was normal. - Cologuard test in October was negati ve. Problem List - Essential hypertension - Hyperlipidemia - Insomnia - Vitamin D deficiency - Vitamin B12 deficiency - Health Maintenance: Colon cancer scree esperanza with Cologuard test. - Health Maintenance: Immunizations up t o date. Plan - Repeat labs as it has been four months since the last set; the order will be placed for fasting blood work. - Continue to monitor mildly elevated li wendy enzymes and blood glucose. - Continue atenolol, lisinopril, atorvas tatin, trazodone, vitamin D, and aspirin as prescribed. - Supplement with vitamin B12 a couple o f times per week. - Cologuard is good for three years, a c olonoscopy can be considered at that time if desired. - Follow-up in four months. Review of Systems - General: No fever no chills - Neurological: No headaches no dizziness - Ear nose throat: No sore throat no hearing difficulty no ear pain - Cardiovascular: No syncope, no chest pain, no palpitations - Gastrointestinal: No nausea vomiting or diarrhea - Endocrine: No polyuria polydipsia no heat intolerance - Genitourinary: No dysuria , no blood in urine Physical Exam General: No acute distress HEENT: No acute findings Neck: Supple Respiratory system: Able to talk in full sentences, no audible wheeze Cardiovascular: S1-S2 regular in rate and rhythm Gastrointestinal: No pain Extremities: No swelling PIPE BLANKS 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 Maternal Grandmother No problems noted. Paternal Grandfather No problems noted. Paternal Grandmother No problems noted. Brother No problems noted. Sister No problems noted. Son No problems noted. Daughter No problems noted. Social History Housing: House Alcohol intake: never Patient Tobacco Use Status: Former Tobacco user e-Cigarette/Vaping Use: Never Used Second Hand Smoke Exposure: No service: No Current occupational status: retired Cognitive needs: No Hearing needs: No Vision needs: Yes (contacts) Questionnaire Thrive Questionnaire Date Thrive assessed: 04/26/24 I am a: Patient What is your living situation today?: I have a steady place to live Within the past 12 months, did the food you bought not last and you didn't have the money to get more?: Never true Within the past 12 months, did you worry whether your food would run out before you got money to buy more?: Never true Do you have trouble paying for medicines?: No Do you have trouble getting transportation to medical appointments?: No Do you have trouble paying your heating and electricity bill?: No Do you have trouble taking care of your child, family member or friend?: No Do you have trouble with day-to-day activities such as bathing, preparing meals, shopping, managing finances, etc.?: No Are you currently unemployed and looking for a job?: No Are you interested in more education?: No Please select the resources that you would like help with: None Currently or been in a relationship where the following occur: No concerns reported THRIVE Score: 0 GOPI-7 AMB Questionnaire GOPI-7 Date GOPI - 7 assessed: 10/13/24 Source: Developed by Drs. Howie Driver, Steffi Stevenson, Tommie Ruby and colleagues, with an educational dayday from [employer]. Physical exam (Primary Care) Vital Signs: Last Vital Signs Pulse 83 02/13/25 11:15 BP 132/78 02/13/25 11:15 Pulse Ox 96 02/13/25 11:15 BMI result Body Mass Index 27.3 Tobacco/Smoking Status: Tobacco use Status Tobacco use date assessed 05/03/24 02/13/25 11:17 Patient Tobacco Use Status Former Tobacco user 02/13/25 11:17 e-Cigarette/Vaping Use Never Used 02/13/25 11:17 Thrive Assessment: Date of Thrive Assessment Date Thrive assessed 04/26/24 02/13/25 11:17 Currently or been in a relationship where the following occur: No concerns reported Coding Level of Care Code Est Pt Level 4 (42282) Add On Problem Visit Only Diagnoses Hypertension, essential I10 Difficulty sleeping G47.9 Lipid disorder E78.9 Impaired fasting blood sugar R73.01 Vitamin D deficiency E55.9 Environmental allergies Z91.09 Assessment & Plan Assessment & Plan (1) Hypertension, essential: Code(s): I10 - Essential (primary) hypertension Category: Medical (2) Difficulty sleeping: Code(s): G47.9 - Sleep disorder, unspecified Category: Medical (3) Lipid disorder: Code(s): E78.9 - Disorder of lipoprotein metabolism, unspecified Category: Medical (4) Impaired fasting blood sugar: Code(s): R73.01 - Impaired fasting glucose Category: Medical (5) Vitamin D deficiency: Code(s): E55.9 - Vitamin D deficiency, unspecified Category: Medical (6) Environmental allergies: Code(s): Z91.09 - Other allergy status, other than to drugs and biological substances Category: Medical Plan Problem List - Essential hypertension - Hyperlipidemia - Insomnia - Vitamin D deficiency - Vitamin B12 deficiency - Health Maintenance: Colon cancer screening with Cologuard test. - Health Maintenance: Immunizations up to date. Plan - Repeat labs as it has been four months since the last set; the order will be placed for fasting blood work. - Continue to monitor mildly elevated liver enzymes and blood glucose. - Continue atenolol, lisinopril, atorvastatin, trazodone, vitamin D, and aspirin as prescribed. - Supplement with vitamin B12 a couple of times per week. - Cologuard is good for three years, a colonoscopy can be considered at that time if desired. - Follow-up in four months. Orders: Orders Complete Blood Count Auto Diff Today E55.9 - Vitamin D deficiency, unspecified, E78.9 - Disorder of lipoprotein metabolism, unspecified, G47.9 - Sleep disorder, unspecified, I10 - Essential (primary) hypertension, R73.01 - Impaired fasting glucose, Z91.09 - Other allergy status, other than to drugs and biological substances Comprehensive [place]. Panel Fast Today E55.9 - Vitamin D deficiency, unspecified, E78.9 - Disorder of lipoprotein metabolism, unspecified, G47.9 - Sleep disorder, unspecified, I10 - Essential (primary) hypertension, R73.01 - Impaired fasting glucose, Z91.09 - Other allergy status, other than to drugs and biological substances Lipid Panel Today E55.9 - Vitamin D deficiency, unspecified, E78.9 - Disorder of lipoprotein metabolism, unspecified, G47.9 - Sleep disorder, unspecified, I10 - Essential (primary) hypertension, R73.01 - Impaired fasting glucose, Z91.09 - Other allergy status, other than to drugs and biological substances Vitamin D 25-OH (D2 and D3) Today E55.9 - Vitamin D deficiency, unspecified, E78.9 - Disorder of lipoprotein metabolism, unspecified, G47.9 - Sleep disorder, unspecified, I10 - Essential (primary) hypertension, R73.01 - Impaired fasting glucose, Z91.09 - Other allergy status, other than to drugs and biological substances Vitamin B12 Today E55.9 - Vitamin D deficiency, unspecified, E78.9 - Disorder of lipoprotein metabolism, unspecified, G47.9 - Sleep disorder, unspecified, I10 - Essential (primary) hypertension, R73.01 - Impaired fasting glucose, Z91.09 - Other allergy status, other than to drugs and biological substances
--- OUTSIDE RECORDS SUMMARY | 2025-02-13 14:44 | XMS_ITS | Patient Health Record ---
[facility] Address [address] [facility] [place] [address] Support Name Relationship Address Phone Karina Sauceda Guarantor Unknown Unavailable Reason For Referral No Information Plan Of Treatment No Information Insurance Providers Payer Name Payer Address Payer Phone Subscriber Number Group Number Insured Name Patient Relationship to Insured Coverage Start Date Coverage End Date [facility] [address] [place]gr[place] [phone] [id number] Anny Sauceda Self - patient is the insured
== END 2025-02-13 11:36 | disposition home or self-care (01) ==
LOC: HO.HMCC 11:09
PROVIDERS: PCP Internal Medicine; Visit Provider Internal Medicine
DX: I10 Essential (primary) hypertension (principal); G47.9 Sleep disorder, unspecified; E78.9 Disorder of lipoprotein metabolism, unspecified; R73.01 Impaired fasting glucose; E55.9 Vitamin D deficiency, unspecified; Z91.09 Other allergy status, other than to drugs and biological substances

== ENCOUNTER → 2025-02-13 11:08 | Outpatient (BNVA) | payer MEDICARE, SELFPAY | PROVIDERS: PCP Internal Medicine; Visit Provider Internal Medicine | DX: I10 Essential (primary) hypertension (principal); R73.01 Impaired fasting glucose; E55.9 Vitamin D deficiency, unspecified; Z91.09 Other allergy status, other than to drugs and biological substances | CPT/HCPCS: 99212 ==